=== PATIENT | female | born 1975 | race Caucasian/White ===

== ENCOUNTER 2018-02-24 13:18 | Emergency (ER) | payer BC ==
[~2018-02-24] VITALS: Ht 162.6 cm; Wt 68.6 kg
[~2018-02-24 13:18] MED LIST: AMLO5TAB4 PO; CIPR-260 PO; CLIN-80 PO; IBUP-1985 PO; NO HOME MEDS; PHEN-824 PO; PRED10TA PO; TRAM50TA2 PO
[2018-02-24] MEDS ORDERED: dexamethasone sod phosphate 10mg/ml inj IV STA (14:02)
[2018-02-24] MEDS ORDERED: ampicillin/sulbac 3gm/NS 100ml 100 ML IV ONE (14:05)
[2018-02-24] MEDS ORDERED: iohexol 300mg/ml 100ml inj. ONE (14:27)
[2018-02-24 14:30] LABS: BASOPHILS % (AUTO) 0 % (0-1); EOSINOPHILS # (AUTO) 0.1 X10'3 (0-0.9); EOSINOPHILS % (AUTO) 0.6 % (0-6); HEMATOCRIT 42.4 % (35.0-45.0); HEMOGLOBIN 15.1 g/dl (12.0-16.0); LYMPHOCYTES # (AUTO) 0.9 X10'3 (1.1-4.8); LYMPHOCYTES % (AUTO) 6.2 % (21-51); MEAN CORPUSCULAR HEMOGLOBIN 34.6 PG (27.0-31.0); MEAN CORPUSCULAR HGB CONC 35.6 % (33.0-36.5); MEAN CORPUSCULAR VOLUME 97.1 FL (78-98); MEAN PLATELET VOLUME 6.8 FL (7.4-10.4); MONOCYTES # (AUTO) 0.8 X10'3 (0-0.9); MONOCYTES % (AUTO) 5.3 % (2-12); NEUTROPHILS # (AUTO) 13.2 X10'3 (1.8-7.7); NEUTROPHILS % (AUTO) 87.9 % (42-75); PLATELET COUNT 320 X10'3 (140-440); RED BLOOD COUNT 4.36 X10'6 (4.20-5.60); RED CELL DISTRIBUTION WIDTH 12.7 % (11.5-14.5)
[2018-02-24 14:44] LABS: ALBUMIN 3.1 G/DL (3.4-5.0); ANION GAP 9 (8-16); BLOOD UREA NITROGEN 9 MG/DL (7-18); CALCIUM 8.9 MG/DL (8.5-10.1); CHLORIDE 102 MMOL/L (99-107); CREATININE 0.45 MG/DL (0.40-0.90); GLUCOSE 101 MG/DL (70-104); POTASSIUM 3.4 MMOL/L (3.5-5.1); SODIUM 138 MMOL/L (135-145); TOTAL CARBON DIOXIDE 27.2 MMOL/L (24-32); eGFR > 90 ML/MIN
[2018-02-24] MEDS: LIDOcaine Viscous 15ml cup MM PRN ×2 (16:59→17:41)
[2018-02-24] MEDS ORDERED: ondansetron 4mg rapidly disintigrating tab PO ONE (17:20)
[2018-02-24] MEDS ORDERED: MORPHINE 2MG in 2ml NS syringe IV ONE (17:20)
[2018-02-24] MEDS ORDERED: morphine 4 MG/ML inj SYRINge IV ONE ×2 (17:25→18:00)
[2018-02-24] MEDS ORDERED: LIDOcaine Viscous 15ml cup MM PRN (17:35)
[2018-02-24] MEDS ORDERED: LIDOcaine 1% 30ml preserv. free vial IJ STA (17:35)
[2018-02-24] MEDS ORDERED: HYDR-565 PO (17:39)
[2018-02-24] MEDS ORDERED: CLIN300C17 PO (17:39)
[2018-02-24 19:23] VITALS: BP 144/76
== END 2018-02-24 19:30 | disposition home or self-care (01) ==
LOC: ER 13:18
DX: J36 Peritonsillar abscess (principal); I10 Essential (primary) hypertension; F12.10 Cannabis abuse, uncomplicated; F15.10 Other stimulant abuse, uncomplicated; Z86.14 Personal history of Methicillin resistant Staphylococcus aureus infection; Z88.5 Allergy status to narcotic agent; Z88.8 Allergy status to other drugs, medicaments and biological substances; Z79.899 Other long term (current) drug therapy; Z90.49 Acquired absence of other specified parts of digestive tract
CPT/HCPCS: 36415; 42700; 80048; 85025; 87070; 87077; 87186; 96365; 96375; 96376; 99285; A6449; J0295; J1100; J2270; Q9967

== ENCOUNTER 2018-07-18 13:31 | Emergency (ER) | payer BC ==
[~2018-07-18] VITALS: Ht 160 cm; Wt 56.0 kg
[~2018-07-18 13:31] MED LIST changes: -CLIN-80 PO; +CLIN300C17 PO; +CLIN300C85 PO
[2018-07-18] MEDS ORDERED: dexamethasone sod phosphate 10mg/ml inj PO STA (14:51)
[2018-07-18] MEDS ORDERED: AMOX-422 PO (14:55)
[2018-07-18] MEDS ORDERED: ondansetron 4mg rapidly disintigrating tab PO ONE (14:55)
[2018-07-18 15:19] VITALS: BP 166/118
== END 2018-07-18 15:21 | disposition home or self-care (01) ==
LOC: ER 13:31
DX: J36 Peritonsillar abscess (principal); M54.2 Cervicalgia; I10 Essential (primary) hypertension; F12.90 Cannabis use, unspecified, uncomplicated; F15.90 Other stimulant use, unspecified, uncomplicated; Z86.14 Personal history of Methicillin resistant Staphylococcus aureus infection; Z90.49 Acquired absence of other specified parts of digestive tract; Z98.51 Tubal ligation status; Z88.8 Allergy status to other drugs, medicaments and biological substances; Z88.5 Allergy status to narcotic agent; Z79.899 Other long term (current) drug therapy
CPT/HCPCS: 99283; J1100

== ENCOUNTER 2018-08-12 13:09 | Emergency (ER) | payer BC ==
[~2018-08-12] VITALS: Ht 160 cm; Wt 65.5 kg
[2018-08-12 13:13] VITALS: BP 159/106
[2018-08-12] MEDS ORDERED: ondansetron/PF 4mg/2ml inj IV ONE (13:35)
[2018-08-12] MEDS ORDERED: normal saline 1000ML IV soln IVB ONE (13:35)
[2018-08-12 13:38] LABS: BASOPHILS % (AUTO) 0.3 % (0-1); EOSINOPHILS % (AUTO) 0.2 % (0-6); HEMOGLOBIN 15.4 g/dl (12.0-16.0); LYMPHOCYTES # (AUTO) 0.8 X10'3 (1.1-4.8); LYMPHOCYTES % (AUTO) 7.5 % (21-51); MEAN CORPUSCULAR HGB CONC 34.9 % (33.0-36.5); MEAN CORPUSCULAR VOLUME 97.4 FL (78-98); MEAN PLATELET VOLUME 6.4 FL (7.4-10.4); MONOCYTES # (AUTO) 0.7 X10'3 (0-0.9); MONOCYTES % (AUTO) 6.6 % (2-12); NEUTROPHILS # (AUTO) 8.6 X10'3 (1.8-7.7); NEUTROPHILS % (AUTO) 85.4 % (42-75); PLATELET COUNT 308 X10'3 (140-440); RED BLOOD COUNT 4.52 X10'6 (4.20-5.60); RED CELL DISTRIBUTION WIDTH 12.8 % (11.5-14.5); WHITE BLOOD COUNT 10.1 X10'3 (4.5-11.0)
[2018-08-12 13:40] LABS: URINE HCG NEGATIVE (NEG)
[2018-08-12 13:47] LABS: PROTHROMBIN TIME 10.1 SECONDS (9.0-12.0)
[2018-08-12 13:50] LABS: CLARITY,URINE CLEAR (Clear); COLOR,URINE YELLOW (Yellow); GLUCOSE, URINE NEGATIVE (Neg); KETONES,URINE TRACE mg/dl (Neg); LEUKOCYTE ESTERASE ,URINE TRACE (Neg); NITRITES, URINE NEGATIVE (Neg); OCCULT BLOOD,URINE NEGATIVE (Neg); PH,URINE 6.5 (4.8-8.0); PROTEIN,URINE TRACE mg/dl (Neg); UROBILINOGEN,URINE 0.2 E.U/dL (0.2-1.0)
[2018-08-12 13:52] LABS: UA COLLECTION TYPE CLN CATCH MIDSTREAM
[2018-08-12 13:53] LABS: ALANINE AMINOTRANSFERASE 75 U/L (12-78); ALBUMIN 3.3 G/DL (3.4-5.0); ALBUMIN/GLOBULIN RATIO 0.8 (1.1-1.5); ALKALINE PHOSPHATASE 136 IU/L (46-116); AMYLASE 36 U/L (25-115); ANION GAP 9 (8-16); ASPARTATE AMINO TRANSFERASE 42 U/L (10-37); BILIRUBIN,TOTAL 0.8 MG/DL (0.1-1.0); BLOOD UREA NITROGEN 6 MG/DL (7-18); BUN/CREATININE RATIO 8.8 (6.6-38.0); CALCIUM 9.1 MG/DL (8.5-10.1); CHLORIDE 96 MMOL/L (99-107); CREATININE 0.68 MG/DL (0.40-0.90); GLUCOSE 95 MG/DL (70-104); LIPASE 273 U/L (73-393); SODIUM 133 MMOL/L (135-145); TOTAL CARBON DIOXIDE 28.1 MMOL/L (24-32); TOTAL PROTEIN 7.5 G/DL (6.4-8.2); eGFR > 90 ML/MIN
[2018-08-12 13:55] LABS: POTASSIUM 2.9 MMOL/L (3.5-5.1)
[2018-08-12 14:00] LABS: BACTERIA,URINE 1+ /HPF (Neg); RBC,URINE NONE SEEN /HPF (0-2); SQUAMOUS EPITHELIAL CELL,UR MANY /LPF (FEW)
[2018-08-12] MEDS ORDERED: potassium Cl oral solution 20 MEQ/15 ML PO ONE (14:05)
[2018-08-12] MEDS ORDERED: SULF1TAB49 PO (14:06)
[2018-08-12] MEDS ORDERED: potassium Cl 20 mEq SR tablet PO ONE (14:20)
== END 2018-08-12 14:51 | disposition home or self-care (01) ==
LOC: ER 13:09
DX: N39.0 Urinary tract infection, site not specified (principal); E86.0 Dehydration; I10 Essential (primary) hypertension; Z86.14 Personal history of Methicillin resistant Staphylococcus aureus infection; F12.90 Cannabis use, unspecified, uncomplicated; F15.90 Other stimulant use, unspecified, uncomplicated; Z90.49 Acquired absence of other specified parts of digestive tract; Z88.5 Allergy status to narcotic agent; Z88.8 Allergy status to other drugs, medicaments and biological substances; Z79.2 Long term (current) use of antibiotics; Z79.899 Other long term (current) drug therapy
CPT/HCPCS: 36415; 80053; 81001; 81025; 82150; 83690; 85025; 85610; 96361; 96374; 99284; J2405; J7030

== ENCOUNTER 2020-04-16 13:40 | Emergency (ER) | payer BC, MEDICAID ==
[~2020-04-16] VITALS: Ht 157.5 cm; Wt 69.7 kg
[~2020-04-16 13:40] MED LIST changes: +CLIN-97 PO; -CLIN300C85 PO
[2020-04-16] MEDS ORDERED: clindamycin phosphate 150mg/ml inj. IM ONE (14:25)
[2020-04-16] MEDS ORDERED: predniSONE 20 mg tablet PO ONE (14:25)
[2020-04-16] MEDS ORDERED: CLIN-97 PO (14:26)
[2020-04-16] MEDS ORDERED: PRED20TA PO (14:26)
[2020-04-16 14:56] VITALS: BP 153/69
[2020-04-17] MEDS ORDERED: IBUP-2417 PO (18:16)
[2020-04-17] MEDS ORDERED: NO HOME MEDS (19:31)
== END 2020-04-16 14:57 | disposition home or self-care (01) ==
LOC: ER 13:41
DX: J02.9 Acute pharyngitis, unspecified (principal); I10 Essential (primary) hypertension; F41.9 Anxiety disorder, unspecified; F32.9 Major depressive disorder, single episode, unspecified; F17.200 Nicotine dependence, unspecified, uncomplicated; F12.90 Cannabis use, unspecified, uncomplicated; F15.90 Other stimulant use, unspecified, uncomplicated; Z88.8 Allergy status to other drugs, medicaments and biological substances; Z72.89 Other problems related to lifestyle; Z86.14 Personal history of Methicillin resistant Staphylococcus aureus infection; Z79.899 Other long term (current) drug therapy
CPT/HCPCS: 96372; 99283; J3490; J7512

== ENCOUNTER 2020-04-17 11:10 | Inpatient (IN) | payer MEDICAID ==
[~2020-04-17] VITALS: Ht 157.5 cm; Wt 68.5 kg
[2020-04-17] MEDS: K, MAG and/or Phos replacement - Verify level? MC SCH
[~2020-04-17 11:10] MED LIST changes: +PRED20TA PO; +etomidate 2mg/ml inj. ONE; +rocuronium 10mg/ml inj IV ONE
[2020-04-17] MEDS ORDERED: dexamethasone sod phosphate 10mg/ml inj IV STA (11:59)
[2020-04-17] MEDS ORDERED: normal saline 1000ML IV soln IVB ONE ×3 (12:00→17:25)
[2020-04-17] MEDS ORDERED: iohexol 300mg/ml 100ml inj. ONE (12:12)
--- NOTE | 2020-04-17 12:21 | NUR ---
To CT, will start IVF bolus and give decadron upon return.
--- NOTE | 2020-04-17 12:35 | NUR ---
Return from CT.
[2020-04-17] MEDS ORDERED: ketorolac trometh. 30mg/ml inj. IV ONE (12:45)
[2020-04-17] MEDS ORDERED: ketamine 50 mg/ml 10ml vial IV ONE (13:05)
--- NOTE | 2020-04-17 14:06 | NUR ---
Consent for I&D of persistent abscess with moderate sedation completed by the providers and patient.
[2020-04-17] MEDS ORDERED: LIDOcaine 1% W/epiNEPHrine 1:200,000 10ml vial IJ ONE (14:15)
[2020-04-17] MEDS ORDERED: ampicillin/sulbac 3gm/NS 100ml 100 ML IV STA (14:17)
[2020-04-17] MEDS ORDERED: LORazepam 2 mg/ml vial IV ONE ×4 (15:15→20:35)
--- NOTE | 2020-04-17 15:44 | NUR ---
Pt's skin is cool, clammy, and diaphoretic. Pt reports feeling hot, temperature taken and is 98.6 oral.
--- NOTE | 2020-04-17 16:14 | NUR ---
Difficulty obtaining accurate pulse ox readings due to how cool and clammy the patient is at this time. Pt's nail solomon islander removed, fingers and both hands checked, and on the right ear. Pulse ox is reading in the 60's then when repositioned will get a reading in the high 80's to low 90's. This has been happening since the procedure was in progress. Pt placed on NRB mask at 15l/min. The IVF bolus that was hung pre-procedure started wide open at this time per HEMA Jain
[2020-04-17] MEDS ORDERED: glycopyrrolate 0.2mg/ml inj IV ONE (16:25)
[2020-04-17] MEDS ORDERED: vancomycin inj 1,000 MG in normal saline 250ml IV soln 250 ML IV STA (16:26)
[2020-04-17] MEDS ORDERED: ipratropium/albuterol 3ml nebule NEB ONE (16:30)
--- NOTE | 2020-04-17 16:54 | NUR ---
RT is here to complete neb treatment. Pt's pulse ox is ranging mid 80's with NRB at this time. HR 125-130 pre-treatment
[2020-04-17] MEDS ORDERED: cloNIDine 0.1 mg tablet PO ONE ×2 (16:55→18:45)
[2020-04-17 17:01] LABS: EOSINOPHILS % (AUTO) 0 % (0-6); MONOCYTES # (AUTO) 0.4 X10'3 (0-0.9); RED BLOOD COUNT 4.84 X10'6 (4.20-5.60)
[2020-04-17 17:03] LABS: BASOPHILS % (AUTO) 0.2 % (0-1); HEMATOCRIT 47.4 % (35.0-45.0); HEMOGLOBIN 16.5 g/dl (12.0-16.0); LYMPHOCYTES # (AUTO) 0.5 X10'3 (1.1-4.8); LYMPHOCYTES % (AUTO) 1.9 % (21-51); MEAN CORPUSCULAR HGB CONC 34.7 g/dL (33.0-36.5); MONOCYTES % (AUTO) 1.3 % (2-12); NEUTROPHILS # (AUTO) 26.7 X10'3 (1.8-7.7); NEUTROPHILS % (AUTO) 96.6 % (42-75); PLATELET COUNT 307 X10'3 (140-440); RED CELL DISTRIBUTION WIDTH 12.7 % (11.5-14.5)
[2020-04-17 17:06] LABS: WHITE BLOOD COUNT 27.7 X10'3 (4.5-11.0)
--- NOTE | 2020-04-17 17:07 | NUR ---
Pt assisted to the bedside commode to void. Pt voided approximately 350 yellow urine.
[2020-04-17 17:19] LABS: CLARITY,URINE SLIGHTLY CLOUDY (Clear); COLOR,URINE YELLOW (Yellow); GLUCOSE, URINE 100 mg/dl (Neg); KETONES,URINE 15 mg/dl (Neg); LEUKOCYTE ESTERASE ,URINE NEGATIVE (Neg); NITRITES, URINE NEGATIVE (Neg); OCCULT BLOOD,URINE TRACE-INTACT (Neg); PH,URINE 7.5 (4.8-8.0); PROTEIN,URINE 100 mg/dl (Neg); URINE HCG NEGATIVE (NEG); UROBILINOGEN,URINE 0.2 E.U/dL (0.2-1.0)
[2020-04-17 17:20] LABS: UA COLLECTION TYPE CLN CATCH MIDSTREAM
[2020-04-17 17:25] LABS: BACTERIA,URINE FEW /HPF (Neg); MUCUS STRANDS NONE SEEN /LPF (Neg); RBC,URINE 0-2 /HPF (0-2); SQUAMOUS EPITHELIAL CELL,UR MANY /LPF (FEW); WBC,URINE 0-4 /HPF (0-4)
--- NOTE | 2020-04-17 17:26 | NUR ---
Pt had approximately 500ml IVF NS post procedure and 1l bolus prior to the procedure. Order for additional 1liter NSS bolus received.
[2020-04-17 17:27] LABS: ALANINE AMINOTRANSFERASE 49 U/L (12-78); ALBUMIN 2.8 G/DL (3.4-5.0); ALBUMIN/GLOBULIN RATIO 0.6 (1.1-1.5); ALKALINE PHOSPHATASE 135 IU/L (46-116); ANION GAP 15 (8-16); ASPARTATE AMINO TRANSFERASE 57 U/L (10-37); BLOOD UREA NITROGEN 7 MG/DL (7-18); BUN/CREATININE RATIO 8.2 (6.6-38.0); CALCIUM 7.8 MG/DL (8.5-10.1); CHLORIDE 102 MMOL/L (99-107); CREATININE 0.85 MG/DL (0.40-0.90); GLUCOSE 256 MG/DL (70-104); MAGNESIUM 1.2 MG/DL (1.5-2.4); SODIUM 139 MMOL/L (135-145); TOTAL CARBON DIOXIDE 21.6 MMOL/L (24-32); TOTAL PROTEIN 7.2 G/DL (6.4-8.2); TROPONIN I 0.16 NG/ML (0.0-0.05); eGFR 73 ML/MIN
[2020-04-17 17:30] LABS: POTASSIUM 2.9 MMOL/L (3.5-5.1)
[2020-04-17 17:31] LABS: URINE AMPHETAMINE SCREEN POSITIVE (Neg); URINE BARBITUATE SCREEN NEGATIVE (Neg); URINE BENZODIAZEPINES SCREEN NEGATIVE (Neg); URINE CANNABINOID SCREEN POSITIVE (Neg); URINE COCAINE SCREEN NEGATIVE (Neg); URINE METHADONE SCREEN NEGATIVE (Neg); URINE OPIATE SCREEN NEGATIVE (Neg); URINE PHENCYCLIDINE SCREEN NEGATIVE (Neg)
[2020-04-17] MEDS ORDERED: potassium 10mEq/100ml NS w/LIDOcaine (10mg/bag) IV SCH (17:35)
[2020-04-17] MEDS ORDERED: magnesium 2GM in 50ml NS 50 ML IV ONE (17:35)
[2020-04-17] MEDS ORDERED: potassium Cl 20 mEq SR tablet PO ONE (17:35)
[2020-04-17] MEDS ORDERED: potassium Cl 10 mEq/100mL bag IV SCH (17:38)
[2020-04-17 17:48] LABS: TOTAL CELLS COUNTED 100
[2020-04-17 17:49] LABS: PLATELET ESTIMATE NORMAL; TOXIC GRANULATION 1+
--- NOTE | 2020-04-17 17:59 | NUR ---
bipap placed by RT for increased work of breathing
[2020-04-17] MEDS ORDERED: IBUP-2417 PO (18:16)
[2020-04-17] MEDS ORDERED: potassium CL 10mEq/100ml bag 100 ML IV PRN ×2 (18:55)
[2020-04-17] MEDS ORDERED: magnesium hydroxide 30ml (MOM) UD suspension PO PRN (18:55)
[2020-04-17] MEDS ORDERED: magnesium Cl slow-release 64mg tablet PO PRN (18:55)
[2020-04-17] MEDS ORDERED: ondansetron/PF 4mg/2ml inj IV PRN (18:55)
[2020-04-17] MEDS ORDERED: potassium Cl 20 mEq SR tablet PO PRN ×2 (18:55)
[2020-04-17] MEDS ORDERED: acetaminophen 325mg tablet PO PRN (18:55)
[2020-04-17] MEDS ORDERED: magnesium 2GM in 50ml NS 50 ML IV PRN (18:55)
[2020-04-17] MEDS ORDERED: morphine 4 MG/ML inj SYRINge IV PRN (18:55)
[2020-04-17] MEDS ORDERED: magnesium 4gm in 100ml NS 100 ML IV PRN (18:55)
[2020-04-17] MEDS ORDERED: nitroGLYCERIN 0.2mg/hour patch TD ONE (19:10)
[2020-04-17] MEDS ORDERED: furosemide 10 MG/1 ML 10ml inj IV ONE ×4 (19:15→20:35)
--- NOTE | 2020-04-17 19:18 | NUR ---
repeat lactic acid and troponin is being collected at this time.
[2020-04-17] MEDS ORDERED: NO HOME MEDS (19:31)
--- NOTE | 2020-04-17 19:55 | NUR ---
Recieved report from Kathy TRUONG in ER, patient to be admited to room 2013, will assume care upon patient arrival to unit.
[2020-04-17] MEDS ORDERED: ampicillin inj 2 GM in normal saline 100ml IV soln 100 ML IV SCH (20:00)
[2020-04-17] MEDS ORDERED: metroNIDAZOLE-Flagyl 500mg/NS 100 ML IV SCH (20:00)
--- NOTE | 2020-04-17 20:15 | NUR ---
Telephone report to CICU Nurse DIONNE Christina. Respiratory Therapist spoke with the provider about the patient's respiratory effort and decreased SpO2 and that they feel she is unstable for transport to the unit at this time. Continuing to monitor and care for the patient in the ED.
[2020-04-17 20:21] LABS: ABG BASE EXCESS -2.8 mmol/L (-2.0-3.0); ABG OXYGEN SATURATION 91.6 % (95-98); ABG PCO2 (T) 34.5 mmHg (35.0-45.0); ABG PH (T) 7.402 (7.350-7.450); ABG PO2 (T) 67.1 mmHg (83-108); ALLEN'S TEST POSITIVE; FCOHb 0.3 % (0.5-1.5); FMetHb 0.2 % (0.3-1.12); FO2Hb 91.1 % (94-100); TOTAL HEMOGLOBIN 18.4 G/dl (12.0-16.0)
[2020-04-17] MEDS: normal saline 1000ml 1,000 ML IV SCH (20:23)
[2020-04-17] MEDS ORDERED: nitroGLYCERIN-Tridil 50MG/D5W 250 ML IV ONE (20:40)
[2020-04-17] MEDS ORDERED: albuterol 2.5 MG/3 ML nebule NEB PRN (21:05)
--- NOTE | 2020-04-17 21:05 | NUR ---
md administered nitroglycerin 2500 mcg IV. MD will intubate. Pt moved to ER 3
--- NOTE | 2020-04-17 21:05 | NUR ---
Report to Purnima Kimbrough RN for break relief.
--- NOTE | 2020-04-17 21:14 | NUR ---
2113 INTUBATION WITH HIRSCH 3 2117 10 MG ETOMIDATE AND50 ALEK PT INTUBATED HR 111, O2 97,126/89
--- NOTE | 2020-04-17 21:15 | NUR ---
pt intubated [address]. OG tube place on low intermittent suction
[2020-04-17] MEDS ORDERED: iohexol 350MG/ML 100ml bottle IV ONE (21:19)
--- NOTE | 2020-04-17 21:20 | NUR ---
Upon return from Break, pt had been moved from room 14 to room 3 and was intubated using RSI medications. Purnima Kimbrough, RN is managing the care of the patient as the primary nurse at this time.
[2020-04-17] MEDS ORDERED: rocuronium 10mg/ml inj IV ONE (21:30)
[2020-04-17] MEDS ORDERED: etomidate 2mg/ml inj. IV ONE (21:30)
[2020-04-17] MEDS ORDERED: propofol 1000mg/100ml bottle 100 ML IV PRN (21:37)
[2020-04-17] MEDS ORDERED: methylPREDNISolone sod succ 125mg/2ml vial IV ONE (21:40)
[2020-04-17] MEDS ORDERED: pantoprazole 40 MG vial IV ONE (22:00)
[2020-04-17] MEDS ORDERED: VECuronium br 10mg inj. IV ONE (22:00)
[2020-04-17 22:05] LABS: ABG BASE EXCESS -6.8 mmol/L (-2.0-3.0); ABG HCO3 19.7 mmol/L (22.0-26.0); ABG OXYGEN SATURATION 86.4 % (95-98); ABG PCO2 (T) 44.5 mmHg (35.0-45.0); ABG PH (T) 7.268 (7.350-7.450); ABG PO2 (T) 62.9 mmHg (83-108); FCOHb 0.3 % (0.5-1.5); FO2Hb 86.1 % (94-100); PATIENT TEMPERATURE 37.8; PEEP 18 cm H2O; RESPIRATORY RATE 28 b/min; TIDAL VOLUME 350 mL; TOTAL HEMOGLOBIN 19.5 G/dl (12.0-16.0)
[2020-04-17] MEDS ORDERED: NORepinephrine 8mg/ 250ml NS 250 ML IV PRN (22:09)
[2020-04-17 22:15] LABS: EOSINOPHILS % (AUTO) 0 % (0-6); LYMPHOCYTES # (AUTO) 0.8 X10'3 (1.1-4.8); LYMPHOCYTES % (AUTO) 1.8 % (21-51); MONOCYTES # (AUTO) 1.2 X10'3 (0-0.9); PLATELET COUNT 369 X10'3 (140-440)
[2020-04-17 22:17] LABS: BASOPHILS % (AUTO) 0.1 % (0-1); HEMATOCRIT 52.1 % (35.0-45.0); HEMOGLOBIN 17.9 g/dl (12.0-16.0); MEAN CORPUSCULAR HEMOGLOBIN 34.1 PG (27.0-31.0); MEAN CORPUSCULAR HGB CONC 34.4 g/dL (33.0-36.5); MEAN CORPUSCULAR VOLUME 99.2 FL (78-98); MEAN PLATELET VOLUME 7.4 FL (7.4-10.4); MONOCYTES % (AUTO) 2.7 % (2-12); NEUTROPHILS # (AUTO) 40.5 X10'3 (1.8-7.7); NEUTROPHILS % (AUTO) 95.4 % (42-75); RED BLOOD COUNT 5.26 X10'6 (4.20-5.60); RED CELL DISTRIBUTION WIDTH 12.9 % (11.5-14.5)
[2020-04-17 22:25] LABS: WHITE BLOOD COUNT 42.5 X10'3 (4.5-11.0)
[2020-04-17 22:29] LABS: ALANINE AMINOTRANSFERASE 45 U/L (12-78); ALBUMIN 2.6 G/DL (3.4-5.0); ALBUMIN/GLOBULIN RATIO 0.6 (1.1-1.5); ALKALINE PHOSPHATASE 139 IU/L (46-116); ANION GAP 11 (8-16); ASPARTATE AMINO TRANSFERASE 62 U/L (10-37); BILIRUBIN,TOTAL 1.4 MG/DL (0.1-1.0); BLOOD UREA NITROGEN 9 MG/DL (7-18); BUN/CREATININE RATIO 8.1 (6.6-38.0); CALCIUM 7.9 MG/DL (8.5-10.1); CHLORIDE 104 MMOL/L (99-107); CREATININE 1.11 MG/DL (0.40-0.90); GLUCOSE 233 MG/DL (70-104); PARTIAL THROMBOPLASTIN TIME 22 SECONDS (22-32); SODIUM 140 MMOL/L (135-145); TOTAL CARBON DIOXIDE 24.9 MMOL/L (24-32); TOTAL PROTEIN 7.2 G/DL (6.4-8.2); eGFR 53 ML/MIN
[2020-04-17 22:31] LABS: POTASSIUM 3.9 MMOL/L (3.5-5.1)
--- NOTE | 2020-04-17 22:57 | NUR ---
NEGATIVE COVID SWAB. PRIMARY DIONNE SEN AND DR. CHILDS NOTIFIED
[2020-04-17 23:09] LABS: PLATELET ESTIMATE NORMAL; TOTAL CELLS COUNTED 100; TOXIC GRANULATION 1+
[2020-04-17] MEDS: ipratropium/albuterol 3ml nebule NEB SCH (23:09)
--- NOTE | 2020-04-17 23:19 | NUR ---
Received report from Purnima TRUONG. Patient to be admited to room 2010, will assume patient care upon patient arrival to unit.
[2020-04-17 23:45] VITALS: BP 103/74
[2020-04-17] MEDS ORDERED: acetaminophen 1,000mg/100ml IV 100 ML IV ONE (23:45)
[2020-04-18] VITALS (24 sets, daily range): BP systolic 83–121; BP diastolic 52–84
[2020-04-18] MEDS: FENTANYL-0.9 % NACL/PF 100 ML IV PRN ×6 (00:03→22:33)
[2020-04-18] MEDS: midazolam 100mg in NS 100ml 100 ML IV PRN ×5 (00:04→21:46)
[2020-04-18 01:41] LABS: ABG HCO3 18.7 mmol/L (22.0-26.0); ABG OXYGEN SATURATION 90.4 % (95-98); ABG PCO2 (T) 37.4 mmHg (35.0-45.0); ABG PH (T) 7.324 (7.350-7.450); ABG PO2 (T) 69.7 mmHg (83-108); FCOHb 0.3 % (0.5-1.5); FMetHb 0.3 % (0.3-1.12); FO2Hb 89.9 % (94-100); PATIENT TEMPERATURE 38.4; PEEP 18 cm H2O
[2020-04-18 01:41] LABS: OXYGEN SATURATION (MIXED VEN) 55.8 % (60-80); PO2 MIXED VENOUS (TEMP COR) 37.5 mmHg (35-46)
[2020-04-18] MEDS: clindamycin 600mg/D5W 50ml 50 ML IV SCH ×2 (01:44→08:10)
[2020-04-18] MEDS: methylPREDNISolone sod succ 125mg/2ml vial IV SCH ×4 (01:45→20:32)
[2020-04-18] MEDS: piperacillin/tazo 3.375gm/50ml 50 ML IV SCH ×2 (01:53→10:09)
[2020-04-18 01:59] LABS: EOSINOPHILS % (AUTO) 0 % (0-6); HEMOGLOBIN 15.1 g/dl (12.0-16.0); LYMPHOCYTES # (AUTO) 0.3 X10'3 (1.1-4.8); LYMPHOCYTES % (AUTO) 0.8 % (21-51); MEAN CORPUSCULAR VOLUME 98.6 FL (78-98)
[2020-04-18 02:03] LABS: BASOPHILS # (AUTO) 0.2 X10'3 (0-0.2); BASOPHILS % (AUTO) 0.5 % (0-1); HEMATOCRIT 44.4 % (35.0-45.0); MEAN CORPUSCULAR HEMOGLOBIN 33.5 PG (27.0-31.0); MEAN PLATELET VOLUME 7.5 FL (7.4-10.4); MONOCYTES # (AUTO) 1.3 X10'3 (0-0.9); MONOCYTES % (AUTO) 3.1 % (2-12); NEUTROPHILS # (AUTO) 38.8 X10'3 (1.8-7.7); NEUTROPHILS % (AUTO) 95.6 % (42-75); PLATELET COUNT 332 X10'3 (140-440); RED CELL DISTRIBUTION WIDTH 12.8 % (11.5-14.5)
[2020-04-18 02:16] LABS: WHITE BLOOD COUNT 40.6 X10'3 (4.5-11.0)
[2020-04-18 02:20] LABS: ALANINE AMINOTRANSFERASE 35 U/L (12-78); ALBUMIN 2.2 G/DL (3.4-5.0); ALBUMIN/GLOBULIN RATIO 0.6 (1.1-1.5); ALKALINE PHOSPHATASE 102 IU/L (46-116); ANION GAP 10 (8-16); ASPARTATE AMINO TRANSFERASE 53 U/L (10-37); BILIRUBIN,TOTAL 0.9 MG/DL (0.1-1.0); BLOOD UREA NITROGEN 12 MG/DL (7-18); BUN/CREATININE RATIO 10.7 (6.6-38.0); CHLORIDE 109 MMOL/L (99-107); CREATININE 1.12 MG/DL (0.40-0.90); GLUCOSE 192 MG/DL (70-104); MAGNESIUM 1.7 MG/DL (1.5-2.4); PHOSPHORUS 2.4 MG/DL (2.3-4.5); SODIUM 141 MMOL/L (135-145); TOTAL CARBON DIOXIDE 22.3 MMOL/L (24-32); TOTAL PROTEIN 5.9 G/DL (6.4-8.2); eGFR 53 ML/MIN
[2020-04-18] MEDS: ipratropium/albuterol 3ml nebule NEB SCH ×6 (02:48→23:11)
[2020-04-18] MEDS ORDERED: VECuronium br 10mg inj. IV ONE (03:05)
[2020-04-18] MEDS ORDERED: furosemide 40mg/4ml inj IV ONE (03:20)
[2020-04-18] MEDS: CISatracurium besylate inj. 100 MG in normal saline 100ml IV soln 90 ML IV PRN (04:12)
--- NOTE | 2020-04-18 04:37 | NUR ---
0200 decreased PEEP to 15 from 18 per Nicko Bernabe orders 0240 attempted to prone patient due to decrease spo2 of 82%, patient desaturated to 66% spo2, suctioned pt, boluses with sedation and increase, spo2 without improvment, patient returned to supine. Nicko Bernabe informed. chest xray obtained. versed and fentanyl drip increase per Nicko Bernabe [employer] 0313 vecuronium administered. Nimbex drip ordered. 0318 PEEP increased to 18 0334 PEEP 17 0341 PEEP 16 0342 PEEP 15
[2020-04-18] MEDS: normal saline 1000ml 1,000 ML IV SCH ×2 (04:54→16:16)
[2020-04-18] MEDS ORDERED: vancomycin/NS 1 GM ADD-VANTAGE 250 ML IV SCH (05:00)
--- NOTE | 2020-04-18 05:22 | NUR ---
moiz sent to safe.
--- NOTE | 2020-04-18 06:15 | NUR ---
Student documentation: I have reviewed and agree with all interventions, assessments performed and documented by Angélica MARTINEZ student. Student Medication Administration: For this medication-pass time frame, all medication were reviewed, dispensed, administered and documented per hospital policy by Angélica MARTINEZ student.
--- NOTE | 2020-04-18 06:15 | NUR ---
Patient in room CICU 2011. Jf RN & I have received report from Carri TRUONG and had the opportunity to ask questions and assume patient care.
--- NOTE | 2020-04-18 06:20 | NUR ---
Problems reprioritized. Patient report given, questions answered & plan of care reviewed with Jf TRUONG.
[2020-04-18] MEDS ORDERED: pantoprazole 40mg Tablet.DR PO SCH (07:30)
[2020-04-18] MEDS ORDERED: enoxaparin 40mg/0.4ml syringe SUBCUT SCH (08:00)
[2020-04-18] MEDS: K, MAG and/or Phos replacement - Verify level? MC SCH (08:00)
[2020-04-18] MEDS ORDERED: clindamycin 600mg/D5W 50ml 50 ML IV SCH (08:00)
[2020-04-18] MEDS ORDERED: MESSAGE TO NURSING PO ONE (08:10)
[2020-04-18] MEDS: furosemide 40mg/4ml inj IV SCH ×2 (08:12→20:31)
[2020-04-18] MEDS: pantoprazole 40 MG vial IV SCH (08:14)
[2020-04-18] MEDS: heparin, porcine 5000 units/ml vial SQ SCH ×2 (08:19→20:29)
--- NOTE | 2020-04-18 08:50 | NUR ---
Jf TRUONG and I gave report to Nikole TRUONG.
--- NOTE | 2020-04-18 11:47 | NUR ---
Patient is intubated. Presented to ED with c/o sore throat x4 days with swelling to neck and face, difficulty swallowing water this morning per ED note. Had CT revealing peritonsillar abscess, had aspiration of abscess, followed by pt needing Bipap, then later intubated. Is currently with no tube feedings. If to have nutrition support if prolonged intubation recommendations are below. Recommend: 1. IF tube feeding recommend vital AF at 70 ml/hr, would provide 1680 ml, 2016 cals, 126 g protein, and 1362 ml water. 2. IF tube feeding and if receiving water flush recommend water flush 115 ml q 4 hours 3. IF tube feeding, daily weights and prealbumin q saturday and Addendum: 04/18/20 at [address] Amended: Links added.
[2020-04-18] MEDS: levoFLOXACIN-Levaquin 500mg/D5 100 ML IV SCH (13:17)
[2020-04-18] MEDS ORDERED: dextrose 50%-water 50ml dispensing syringe IV PRN ×2 (15:20)
[2020-04-18] MEDS ORDERED: MESSAGE TO PHARMACY PO ONE (15:20)
[2020-04-18] MEDS ORDERED: dextrose ORAL solution 15 GM/59 ML bottle PO PRN ×2 (15:20)
[2020-04-18] MEDS ORDERED: insulin Lispro (HumaLOG) vial - multi-dose SQ SCH (15:20)
[2020-04-18] MEDS ORDERED: glucagon, human recombinant 1mg kit SUBCUT PRN (15:20)
[2020-04-18] MEDS: insulin regular, human U-100 3ml vial - multi-dose SQ SCH ×2 (16:15→20:44)
[2020-04-18] MEDS ORDERED: NORepinephrine 8mg/ 250ml NS 250 ML IV PRN (16:18)
[2020-04-18 19:41] LABS: ABG BASE EXCESS -0.8 mmol/L (-2.0-3.0); ABG HCO3 24.4 mmol/L (22.0-26.0); ABG OXYGEN SATURATION 94.7 % (95-98); ABG PCO2 (T) 42.6 mmHg (35.0-45.0); ABG PH (T) 7.377 (7.350-7.450); ABG PO2 (T) 77.8 mmHg (83-108); FCOHb 0.3 % (0.5-1.5); FMetHb 0.2 % (0.3-1.12); FO2Hb 94.2 % (94-100); PATIENT TEMPERATURE 37.2; PEEP 15 cm H2O; RESPIRATORY RATE 28 b/min; TIDAL VOLUME 350 mL; TOTAL HEMOGLOBIN 12.7 G/dl (12.0-16.0)
[2020-04-18] MEDS: lactobacillus rhamnosus 10,000 MMU CELLS/CAPSULE PO SCH (20:30)
[2020-04-18] MEDS: insulin glargine (Lantus) pen - multi-dose SQ SCH (20:45)
[2020-04-18] MEDS ORDERED: dexmedetomidin/NS 400mcg/100ml 100 ML IV SCH (22:30)
[2020-04-18] MEDS: dexmedetomidine inj. 400 MCG in dextrose 5%-water 96 ML IV SCH (22:50)
--- NOTE | 2020-04-18 22:57 | NUR ---
Mother called, updated on patient condition.
[2020-04-19] VITALS (24 sets, daily range): BP systolic 87–125; BP diastolic 53–79
[2020-04-19] MEDS: FENTANYL-0.9 % NACL/PF 100 ML IV PRN ×8 (01:20→23:02)
[2020-04-19] MEDS: midazolam 100mg in NS 100ml 100 ML IV PRN ×5 (02:11→22:33)
[2020-04-19] MEDS: methylPREDNISolone sod succ 125mg/2ml vial IV SCH ×4 (02:15→20:05)
[2020-04-19] MEDS: insulin regular, human U-100 3ml vial - multi-dose SQ SCH ×3 (02:26→20:28)
[2020-04-19] MEDS: mineral oil/petrolatum ophthal oint EACHEYE SCH ×4 (02:27→20:24)
[2020-04-19 03:02] LABS: BASOPHILS % (AUTO) 0.1 % (0-1); EOSINOPHILS % (AUTO) 0 % (0-6); HEMATOCRIT 32.2 % (35.0-45.0); HEMOGLOBIN 11.2 g/dl (12.0-16.0); LYMPHOCYTES # (AUTO) 0.4 X10'3 (1.1-4.8); LYMPHOCYTES % (AUTO) 1.6 % (21-51); MEAN CORPUSCULAR HEMOGLOBIN 33.9 PG (27.0-31.0); MEAN CORPUSCULAR HGB CONC 34.7 g/dL (33.0-36.5); MEAN CORPUSCULAR VOLUME 97.8 FL (78-98); MEAN PLATELET VOLUME 7.1 FL (7.4-10.4); MONOCYTES # (AUTO) 0.8 X10'3 (0-0.9); MONOCYTES % (AUTO) 3.6 % (2-12); NEUTROPHILS # (AUTO) 21.9 X10'3 (1.8-7.7); NEUTROPHILS % (AUTO) 94.7 % (42-75); PLATELET COUNT 226 X10'3 (140-440); RED BLOOD COUNT 3.29 X10'6 (4.20-5.60); RED CELL DISTRIBUTION WIDTH 12.8 % (11.5-14.5); WHITE BLOOD COUNT 23.1 X10'3 (4.5-11.0)
[2020-04-19 03:15] LABS: ALANINE AMINOTRANSFERASE 27 U/L (12-78); ALBUMIN 2.2 G/DL (3.4-5.0); ALBUMIN/GLOBULIN RATIO 0.6 (1.1-1.5); ALKALINE PHOSPHATASE 59 IU/L (46-116); ANION GAP 10 (8-16); ASPARTATE AMINO TRANSFERASE 32 U/L (10-37); BILIRUBIN,TOTAL 0.3 MG/DL (0.1-1.0); BLOOD UREA NITROGEN 20 MG/DL (7-18); BUN/CREATININE RATIO 20.8 (6.6-38.0); CALCIUM 7.7 MG/DL (8.5-10.1); CHLORIDE 110 MMOL/L (99-107); CREATININE 0.96 MG/DL (0.40-0.90); GLUCOSE 146 MG/DL (70-104); MAGNESIUM 1.6 MG/DL (1.5-2.4); PHOSPHORUS 1.5 MG/DL (2.3-4.5); POTASSIUM 3.4 MMOL/L (3.5-5.1); SODIUM 147 MMOL/L (135-145); TOTAL CARBON DIOXIDE 27.4 MMOL/L (24-32); TOTAL PROTEIN 5.6 G/DL (6.4-8.2); VANCOMYCIN,TROUGH 3.7 UG/ML (6.0-14.0); eGFR 63 ML/MIN
[2020-04-19] MEDS: ipratropium/albuterol 3ml nebule NEB SCH ×6 (03:32→23:01)
[2020-04-19] MEDS ORDERED: VANCOMYCIN LEVEL IV ONE (04:30)
--- NOTE | 2020-04-19 04:30 | NUR ---
Ling Bernabe BUILDER BEAM of patients prolonged QTC of 0.62. Upon assumption of care at 1825 QTC was 0.58.
[2020-04-19] MEDS ORDERED: Neutra Phos packet OGT ONE (04:40)
[2020-04-19] MEDS: CISatracurium besylate inj. 100 MG in normal saline 100ml IV soln 90 ML IV PRN ×2 (04:41→20:24)
[2020-04-19] MEDS: potassium Cl 20mEq/100mL bag 100 ML IV PRN ×6 (04:46→16:44)
[2020-04-19 04:56] LABS: ABG BASE EXCESS 0.5 mmol/L (-2.0-3.0); ABG HCO3 24.3 mmol/L (22.0-26.0); ABG OXYGEN SATURATION 97.5 % (95-98); ABG PCO2 (T) 36.6 mmHg (35.0-45.0); ABG PH (T) 7.442 (7.350-7.450); ABG PO2 (T) 104.9 mmHg (83-108); FCOHb 0.2 % (0.5-1.5); FMetHb 0.1 % (0.3-1.12); FO2Hb 97.2 % (94-100); PATIENT TEMPERATURE 37.1; PEEP 15 cm H2O; RESPIRATORY RATE 28 b/min; TIDAL VOLUME 350 mL; TOTAL HEMOGLOBIN 11.8 G/dl (12.0-16.0)
[2020-04-19] MEDS ORDERED: magnesium 2GM in 50ml NS 50 ML IV ONE (05:25)
--- NOTE | 2020-04-19 06:20 | NUR ---
Problems reprioritized. Patient report given, questions answered & plan of care reviewed with Jf TRUONG.
[2020-04-19] MEDS: lactobacillus rhamnosus 10,000 MMU CELLS/CAPSULE PO SCH ×2 (07:40→20:05)
[2020-04-19] MEDS: furosemide 40mg/4ml inj IV SCH ×2 (07:40→20:04)
[2020-04-19] MEDS: pantoprazole 40 MG vial IV SCH (07:40)
[2020-04-19] MEDS: heparin, porcine 5000 units/ml vial SQ SCH ×2 (07:41→20:05)
[2020-04-19] MEDS: K, MAG and/or Phos replacement - Verify level? MC SCH (08:22)
[2020-04-19] MEDS: levoFLOXACIN-Levaquin 500mg/D5 100 ML IV SCH (10:57)
--- NOTE | 2020-04-19 12:16 | NUR ---
TF Consult: OGTF to start today per patient scheduling manager. Pt on rotoprone bed w/ ARDS, peritonsillar abscess aspiration, and meth abuse hx. MAP 73 this AM. No BM yet this admit. Will monitor for EN tolerance. Recommend: 1. OGTF per MD using vital AF at 70 ml/hr, would provide 1680 ml, 2016 cals, 126 g protein, and 1362 ml water. 2. additional water flush 200ml Q4 3. daily weights; prealbumin q saturday/ 4. routine bowel care; consider opioid antagonist on opiates 5. monitor for TF tolerance Addendum: 04/19/20 at [address] Amended: Links added.
[2020-04-19] MEDS: dexmedetomidine inj. 400 MCG in dextrose 5%-water 96 ML IV SCH ×2 (12:27→21:18)
[2020-04-19 12:49] LABS: MAGNESIUM 2.3 MG/DL (1.5-2.4)
--- NOTE | 2020-04-19 16:08 | NUR ---
Dr. Porter rounded. He said that he will wait until tomorrow to decrease PEEP again. He would like to see SpO2 maintained in "mid-nineties" range before he will consider it.
--- NOTE | 2020-04-19 18:10 | NUR ---
Problems reprioritized. Patient report given, questions answered & plan of care reviewed with DIONNE Christina.
[2020-04-19] MEDS: normal saline 1000ml 1,000 ML IV SCH ×2 (18:58→19:34)
[2020-04-19] MEDS: insulin glargine (Lantus) pen - multi-dose SQ SCH (20:27)
--- NOTE | 2020-04-19 22:50 | NUR ---
Patients mother called, updated her on current condition.
[2020-04-20] VITALS (24 sets, daily range): BP systolic 112–166; BP diastolic 63–92
[2020-04-20] MEDS: acetaminophen 325mg tablet PO PRN ×2 (00:23→10:12)
[2020-04-20] MEDS: FENTANYL-0.9 % NACL/PF 100 ML IV PRN ×7 (01:45→22:08)
[2020-04-20] MEDS: methylPREDNISolone sod succ 125mg/2ml vial IV SCH ×4 (02:07→20:25)
[2020-04-20] MEDS: mineral oil/petrolatum ophthal oint EACHEYE SCH ×4 (02:15→20:25)
[2020-04-20] MEDS: insulin regular, human U-100 3ml vial - multi-dose SQ SCH ×4 (02:17→21:36)
[2020-04-20 02:47] LABS: BASOPHILS % (AUTO) 0.1 % (0-1); EOSINOPHILS % (AUTO) 0 % (0-6); HEMATOCRIT 30.6 % (35.0-45.0); HEMOGLOBIN 10.4 g/dl (12.0-16.0); LYMPHOCYTES # (AUTO) 0.3 X10'3 (1.1-4.8); LYMPHOCYTES % (AUTO) 1.2 % (21-51); MEAN CORPUSCULAR HEMOGLOBIN 34.4 PG (27.0-31.0); MEAN CORPUSCULAR HGB CONC 34.1 g/dL (33.0-36.5); MEAN CORPUSCULAR VOLUME 100.6 FL (78-98); MEAN PLATELET VOLUME 7.1 FL (7.4-10.4); MONOCYTES # (AUTO) 0.8 X10'3 (0-0.9); MONOCYTES % (AUTO) 3.3 % (2-12); NEUTROPHILS # (AUTO) 21.6 X10'3 (1.8-7.7); NEUTROPHILS % (AUTO) 95.4 % (42-75); PLATELET COUNT 243 X10'3 (140-440); RED BLOOD COUNT 3.04 X10'6 (4.20-5.60); RED CELL DISTRIBUTION WIDTH 12.8 % (11.5-14.5); WHITE BLOOD COUNT 22.7 X10'3 (4.5-11.0)
[2020-04-20] MEDS: ipratropium/albuterol 3ml nebule NEB SCH ×6 (02:56→23:44)
[2020-04-20 02:58] LABS: ALANINE AMINOTRANSFERASE 25 U/L (12-78); ALBUMIN 2.3 G/DL (3.4-5.0); ALBUMIN/GLOBULIN RATIO 0.7 (1.1-1.5); ALKALINE PHOSPHATASE 59 IU/L (46-116); ANION GAP 8 (8-16); ASPARTATE AMINO TRANSFERASE 25 U/L (10-37); BILIRUBIN,TOTAL 0.3 MG/DL (0.1-1.0); BLOOD UREA NITROGEN 23 MG/DL (7-18); BUN/CREATININE RATIO 29.1 (6.6-38.0); CALCIUM 8.2 MG/DL (8.5-10.1); CHLORIDE 111 MMOL/L (99-107); CREATININE 0.79 MG/DL (0.40-0.90); GLUCOSE 137 MG/DL (70-104); MAGNESIUM 2.2 MG/DL (1.5-2.4); PHOSPHORUS 2.4 MG/DL (2.3-4.5); POTASSIUM 4.1 MMOL/L (3.5-5.1); SODIUM 146 MMOL/L (135-145); TOTAL CARBON DIOXIDE 27.3 MMOL/L (24-32); TOTAL PROTEIN 5.8 G/DL (6.4-8.2); eGFR 79 ML/MIN
[2020-04-20 03:21] LABS: ABG BASE EXCESS 0.4 mmol/L (-2.0-3.0); ABG OXYGEN SATURATION 96.7 % (95-98); ABG PCO2 (T) 40.2 mmHg (35.0-45.0); ABG PH (T) 7.411 (7.350-7.450); ABG PO2 (T) 95.3 mmHg (83-108); FCOHb 0.2 % (0.5-1.5); FMetHb 0.1 % (0.3-1.12); FO2Hb 96.4 % (94-100); PATIENT TEMPERATURE 36.8; PEEP 12 cm H2O; RESPIRATORY RATE 24 b/min; TIDAL VOLUME 350 mL; TOTAL HEMOGLOBIN 11.6 G/dl (12.0-16.0)
[2020-04-20] MEDS: midazolam 100mg in NS 100ml 100 ML IV PRN ×4 (03:36→23:47)
[2020-04-20] MEDS ORDERED: lactulose 20gm/30ml cup PO PRN (04:30)
--- NOTE | 2020-04-20 04:45 | NUR ---
Called Nicko Bernabe NP regarding patients BP of 162/91 on arterial line and 143/92 on BP arm cuff. provider stated she will address and put in orders. Awaiting orders. Will continue to monitor.
[2020-04-20] MEDS: lisinopril 5mg tablet NG SCH ×2 (05:03→05:07)
--- NOTE | 2020-04-20 06:28 | NUR ---
Problems reprioritized. Patient report given, questions answered & plan of care reviewed with Nikole TRUONG.
[2020-04-20] MEDS: heparin, porcine 5000 units/ml vial SQ SCH ×2 (07:18→20:25)
[2020-04-20] MEDS: furosemide 40mg/4ml inj IV SCH ×2 (07:19→20:25)
[2020-04-20] MEDS: levoFLOXACIN-Levaquin 500mg/D5 100 ML IV SCH (07:22)
[2020-04-20] MEDS: pantoprazole 40 MG vial IV SCH (07:22)
[2020-04-20] MEDS: docusate sodium 100mg/10ml UD cup PO SCH ×2 (07:22→20:24)
[2020-04-20] MEDS: lactobacillus rhamnosus 10,000 MMU CELLS/CAPSULE PO SCH ×2 (07:22→20:25)
[2020-04-20] MEDS: K, MAG and/or Phos replacement - Verify level? MC SCH (07:23)
[2020-04-20] MEDS: dexmedetomidine inj. 400 MCG in dextrose 5%-water 96 ML IV SCH (07:49)
[2020-04-20] MEDS: CISatracurium besylate inj. 100 MG in normal saline 100ml IV soln 90 ML IV PRN (08:08)
--- NOTE | 2020-04-20 11:31 | NUR ---
F/u: COLBY d/w RN regarding opioid antagonist if grand scribe agreeable given no BM yet this admit on opioids to ensure optimal EN tolerance on rotoprone. Pt is receiving routine colace. TF Consult: OGTF to start today per grand scribe. Pt on rotoprone bed w/ ARDS, peritonsillar abscess aspiration, and meth abuse hx. MAP 73 this AM. No BM yet this admit. Will monitor for EN tolerance. Recommend: 1. OGTF per MD using vital AF at 70 ml/hr, would provide 1680 ml, 2016 cals, 126 g protein, and 1362 ml water. 2. additional water flush 200ml Q4 3. daily weights; prealbumin q saturday/ 4. routine bowel care; consider opioid antagonist on opiates for optimal EN tolerance on rotoprone w/ OG feeds 5. monitor for TF tolerance Addendum: 04/20/20 at [address] Amended: Links added.
--- NOTE | 2020-04-20 11:53 | NUR ---
Administered Tylenol 650 mg over an hour ago. Temp 38.6, initiating cooling blanket now. Will cont. to monitor.
--- NOTE | 2020-04-20 18:30 | NUR ---
Patient in room CICU 2010. I have received report from Nikole TRUONG, and had the opportunity to ask questions and assume patient care.
[2020-04-20] MEDS: insulin glargine (Lantus) pen - multi-dose SQ SCH (21:35)
[2020-04-21] VITALS (24 sets, daily range): BP systolic 86–191; BP diastolic 51–99
[2020-04-21] MEDS: FENTANYL-0.9 % NACL/PF 100 ML IV PRN ×7 (00:54→22:17)
[2020-04-21] MEDS: ipratropium/albuterol 3ml nebule NEB SCH ×6 (02:07→23:08)
[2020-04-21 02:16] LABS: ABG BASE EXCESS 4.4 mmol/L (-2.0-3.0); ABG HCO3 29.2 mmol/L (22.0-26.0); ABG PCO2 (T) 45.8 mmHg (35.0-45.0); ABG PH (T) 7.426 (7.350-7.450); FCOHb 0.3 % (0.5-1.5); FMetHb 0.1 % (0.3-1.12); FO2Hb 95.6 % (94-100); PATIENT TEMPERATURE 37.7; PEEP 8 cm H2O; RESPIRATORY RATE 24 b/min; TIDAL VOLUME 350 mL; TOTAL HEMOGLOBIN 11.3 G/dl (12.0-16.0)
[2020-04-21 02:40] LABS: BASOPHILS % (AUTO) 0.1 % (0-1); EOSINOPHILS % (AUTO) 0 % (0-6); HEMOGLOBIN 10.5 g/dl (12.0-16.0); LYMPHOCYTES # (AUTO) 0.5 X10'3 (1.1-4.8); LYMPHOCYTES % (AUTO) 2.2 % (21-51); MEAN CORPUSCULAR HEMOGLOBIN 34.3 PG (27.0-31.0); MEAN PLATELET VOLUME 7.1 FL (7.4-10.4); NEUTROPHILS # (AUTO) 22.1 X10'3 (1.8-7.7); NEUTROPHILS % (AUTO) 93.7 % (42-75); PLATELET COUNT 256 X10'3 (140-440); RED BLOOD COUNT 3.07 X10'6 (4.20-5.60); RED CELL DISTRIBUTION WIDTH 12.6 % (11.5-14.5); WHITE BLOOD COUNT 23.6 X10'3 (4.5-11.0)
[2020-04-21 02:49] LABS: ALANINE AMINOTRANSFERASE 26 U/L (12-78); ALBUMIN 2.3 G/DL (3.4-5.0); ALBUMIN/GLOBULIN RATIO 0.7 (1.1-1.5); ALKALINE PHOSPHATASE 55 IU/L (46-116); ANION GAP 3 (8-16); ASPARTATE AMINO TRANSFERASE 22 U/L (10-37); BILIRUBIN,TOTAL 0.2 MG/DL (0.1-1.0); BLOOD UREA NITROGEN 27 MG/DL (7-18); CALCIUM 8.3 MG/DL (8.5-10.1); CHLORIDE 110 MMOL/L (99-107); CREATININE 0.71 MG/DL (0.40-0.90); GLUCOSE 134 MG/DL (70-104); MAGNESIUM 1.9 MG/DL (1.5-2.4); PHOSPHORUS 2.2 MG/DL (2.3-4.5); PREALBUMIN 28.4 MG/DL (19-36); SODIUM 144 MMOL/L (135-145); TOTAL PROTEIN 5.5 G/DL (6.4-8.2); eGFR 89 ML/MIN
[2020-04-21] MEDS: insulin regular, human U-100 3ml vial - multi-dose SQ SCH ×4 (02:57→20:12)
[2020-04-21] MEDS: methylPREDNISolone sod succ 125mg/2ml vial IV SCH ×2 (02:59→08:05)
[2020-04-21] MEDS: mineral oil/petrolatum ophthal oint EACHEYE SCH ×4 (02:59→20:10)
[2020-04-21] MEDS: midazolam 100mg in NS 100ml 100 ML IV PRN ×3 (05:10→23:44)
--- NOTE | 2020-04-21 06:30 | NUR ---
Patient in room CICU 2010. I have received report from Kalli Godinez/Romy Santos RN and had the opportunity to ask questions and assume patient care along with Delilah Duran RN
--- NOTE | 2020-04-21 06:50 | NUR ---
Problems reprioritized. Patient report given, questions answered & plan of care reviewed with Lexx TRUONG.
[2020-04-21] MEDS: K, MAG and/or Phos replacement - Verify level? MC SCH (08:00)
[2020-04-21] MEDS: levoFLOXACIN-Levaquin 500mg/D5 100 ML IV SCH (08:01)
[2020-04-21] MEDS: docusate sodium 100mg/10ml UD cup PO SCH ×2 (08:05→20:09)
[2020-04-21] MEDS: pantoprazole 40 MG vial IV SCH (08:05)
[2020-04-21] MEDS: furosemide 40mg/4ml inj IV SCH ×2 (08:05→20:08)
[2020-04-21] MEDS: lactobacillus rhamnosus 10,000 MMU CELLS/CAPSULE PO SCH ×2 (08:05→20:09)
[2020-04-21] MEDS: lisinopril 5mg tablet NG SCH (08:06)
[2020-04-21] MEDS: heparin, porcine 5000 units/ml vial SQ SCH ×2 (08:06→20:06)
[2020-04-21] MEDS: methylPREDNISolone sod succ/PF 40mg inj. IV SCH ×2 (13:15→20:07)
[2020-04-21] MEDS: acetaminophen 325mg tablet PO PRN (13:16)
[2020-04-21] MEDS: dexmedetomidine inj. 400 MCG in dextrose 5%-water 96 ML IV SCH ×2 (13:44→22:39)
--- NOTE | 2020-04-21 18:15 | NUR ---
Problems reprioritized. Patient report given, questions answered & plan of care reviewed with RN.
--- NOTE | 2020-04-21 18:22 | NUR ---
Orientee documentation: I have reviewed and agree with all interventions, assessments performed and documented by Delilah Duran RN.
--- NOTE | 2020-04-21 18:52 | NUR ---
Problems reprioritized. Patient report given, questions answered & plan of care reviewed with Kalli Godinez/Romy Santos RN.
[2020-04-21] MEDS: insulin glargine (Lantus) pen - multi-dose SQ SCH (20:14)
--- NOTE | 2020-04-21 21:49 | NUR ---
MATT Pacheco called, there was no answer. Message left and awaiting a call back. PT is waking up wild/agitated and is hypertensive with SPB 180's-200's per A-Line, currently BP is 194/102 via A-Line and 156/93 via cuff. Sedation has been increase thus far in the shift in attempts to make PT more comfortable at to see if there is any effect of BP. Will continue to monitor.
--- NOTE | 2020-04-21 22:37 | NUR ---
Received call back from MATT Pacheco and received order for PRN Hydralazine. Will continue to monitor.
[2020-04-21] MEDS ORDERED: hydrALAZINE 20mg/ml inj. IV PRN (22:40)
[2020-04-22] VITALS (24 sets, daily range): BP systolic 16–184; BP diastolic 39–101
[2020-04-22] MEDS: FENTANYL-0.9 % NACL/PF 100 ML IV PRN ×3 (00:59→10:02)
[2020-04-22] MEDS: insulin regular, human U-100 3ml vial - multi-dose SQ SCH ×2 (01:57→09:26)
[2020-04-22] MEDS: mineral oil/petrolatum ophthal oint EACHEYE SCH ×3 (02:20→14:26)
[2020-04-22] MEDS: dexmedetomidine inj. 400 MCG in dextrose 5%-water 96 ML IV SCH ×4 (02:20→16:50)
[2020-04-22] MEDS: methylPREDNISolone sod succ/PF 40mg inj. IV SCH ×4 (02:22→20:01)
[2020-04-22 03:27] LABS: BASOPHILS % (AUTO) 0 % (0-1); EOSINOPHILS % (AUTO) 0 % (0-6); HEMATOCRIT 34.6 % (35.0-45.0); HEMOGLOBIN 11.8 g/dl (12.0-16.0); LYMPHOCYTES # (AUTO) 0.8 X10'3 (1.1-4.8); LYMPHOCYTES % (AUTO) 3.8 % (21-51); MEAN CORPUSCULAR HGB CONC 34.2 g/dL (33.0-36.5); MEAN CORPUSCULAR VOLUME 99.5 FL (78-98); MEAN PLATELET VOLUME 7.1 FL (7.4-10.4); MONOCYTES # (AUTO) 1.5 X10'3 (0-0.9); MONOCYTES % (AUTO) 7.3 % (2-12); NEUTROPHILS # (AUTO) 18.3 X10'3 (1.8-7.7); NEUTROPHILS % (AUTO) 88.9 % (42-75); PLATELET COUNT 279 X10'3 (140-440); RED BLOOD COUNT 3.48 X10'6 (4.20-5.60); RED CELL DISTRIBUTION WIDTH 12.6 % (11.5-14.5); WHITE BLOOD COUNT 20.6 X10'3 (4.5-11.0)
[2020-04-22 03:30] LABS: ABG BASE EXCESS 7.6 mmol/L (-2.0-3.0); ABG HCO3 29.8 mmol/L (22.0-26.0); ABG OXYGEN SATURATION 91.4 % (95-98); ABG PCO2 (T) 34.6 mmHg (35.0-45.0); ABG PH (T) 7.556 (7.350-7.450); ABG PO2 (T) 62.3 mmHg (83-108); FCOHb 0.3 % (0.5-1.5); FMetHb 0.2 % (0.3-1.12); FO2Hb 90.9 % (94-100); PATIENT TEMPERATURE 37.6; PEEP 8 cm H2O; RESPIRATORY RATE 24 b/min; TIDAL VOLUME 350 mL; TOTAL HEMOGLOBIN 12.5 G/dl (12.0-16.0)
[2020-04-22] MEDS: ipratropium/albuterol 3ml nebule NEB SCH ×6 (03:36→20:01)
[2020-04-22 03:38] LABS: ALANINE AMINOTRANSFERASE 38 U/L (12-78); ALBUMIN 2.4 G/DL (3.4-5.0); ALBUMIN/GLOBULIN RATIO 0.7 (1.1-1.5); ALKALINE PHOSPHATASE 59 IU/L (46-116); ANION GAP 5 (8-16); ASPARTATE AMINO TRANSFERASE 41 U/L (10-37); BILIRUBIN,TOTAL 0.3 MG/DL (0.1-1.0); BLOOD UREA NITROGEN 27 MG/DL (7-18); BUN/CREATININE RATIO 44.3 (6.6-38.0); CALCIUM 8.2 MG/DL (8.5-10.1); CHLORIDE 105 MMOL/L (99-107); CREATININE 0.61 MG/DL (0.40-0.90); GLUCOSE 126 MG/DL (70-104); MAGNESIUM 1.9 MG/DL (1.5-2.4); PHOSPHORUS 2.3 MG/DL (2.3-4.5); POTASSIUM 3.2 MMOL/L (3.5-5.1); SODIUM 141 MMOL/L (135-145); TOTAL CARBON DIOXIDE 30.6 MMOL/L (24-32); TOTAL PROTEIN 5.7 G/DL (6.4-8.2); eGFR > 90 ML/MIN
[2020-04-22] MEDS ORDERED: dextrose ORAL solution 15 GM/59 ML bottle PEG PRN (05:24)
[2020-04-22] MEDS: POTASSIUM BICARB 20meq eff tab 20 MEQ TABLET.EFF PEG PRN ×3 (05:37→14:28)
[2020-04-22] MEDS: levoFLOXACIN-Levaquin 500mg/D5 100 ML IV SCH (08:52)
[2020-04-22] MEDS: heparin, porcine 5000 units/ml vial SQ SCH ×2 (08:53→20:01)
[2020-04-22] MEDS: pantoprazole 40 MG vial IV SCH (08:53)
[2020-04-22] MEDS: docusate sodium 100mg/10ml UD cup PO SCH ×2 (08:53→20:00)
[2020-04-22] MEDS: furosemide 40mg/4ml inj IV SCH ×2 (08:54→20:01)
[2020-04-22] MEDS: lisinopril 5mg tablet NG SCH (08:54)
[2020-04-22] MEDS: lactobacillus rhamnosus 10,000 MMU CELLS/CAPSULE PO SCH ×2 (08:54→20:01)
[2020-04-22] MEDS: K, MAG and/or Phos replacement - Verify level? MC SCH (08:56)
[2020-04-22] MEDS: normal saline 1000ml 1,000 ML IV SCH (10:01)
[2020-04-22] MEDS: midazolam 100mg in NS 100ml 100 ML IV PRN (10:02)
[2020-04-22] MEDS ORDERED: racepinephrine 11.25mg/0.5ml nebule NEB PRN (14:50)
[2020-04-22] MEDS ORDERED: ipratropium/albuterol 3ml nebule NEB PRN (14:50)
--- NOTE | 2020-04-22 16:30 | NUR ---
Orders to extubate received, RT present, PT extubated at 1545. PT tolerated well. PT alert, oriented and talking. On 4 liters 02 via NC.Denies pain.
--- NOTE | 2020-04-22 17:52 | NUR ---
Follow up 04/22: patient extubated today. NPO. No longer with OG for tube feedings. Will monitor for diet advancement and PO intake. Rec: 1. advance diet as medically indicated to heart healthy 2. monitor need for ONS when diet advanced 3. routine bowel care 4. wt per rx Addendum: 04/22/20 at [address] Amended: Links added.
--- NOTE | 2020-04-22 18:15 | NUR ---
Problems reprioritized. Patient report given, questions answered & plan of care reviewed with RN.
--- NOTE | 2020-04-22 18:24 | NUR ---
Problems reprioritized. Patient report given, questions answered & plan of care reviewed with Scout TRUONG.
[2020-04-22] MEDS: insulin glargine (Lantus) pen - multi-dose SQ SCH (20:02)
[2020-04-23] VITALS (17 sets, daily range): BP systolic 108–161; BP diastolic 66–95
[2020-04-23] MEDS: methylPREDNISolone sod succ/PF 40mg inj. IV SCH ×2 (01:52→07:33)
[2020-04-23] MEDS: ipratropium/albuterol 3ml nebule NEB SCH ×4 (02:20→20:24)
--- NOTE | 2020-04-23 06:33 | NUR ---
Patient in room CICU 2010. I have received report from Scout and had the opportunity to ask questions and assume patient care.
[2020-04-23] MEDS: K, MAG and/or Phos replacement - Verify level? MC SCH (06:34)
[2020-04-23 06:57] LABS: ALANINE AMINOTRANSFERASE 100 U/L (12-78); ALBUMIN 2.8 G/DL (3.4-5.0); ALBUMIN/GLOBULIN RATIO 0.7 (1.1-1.5); ALKALINE PHOSPHATASE 78 IU/L (46-116); ANION GAP 11 (8-16); BILIRUBIN,TOTAL 0.7 MG/DL (0.1-1.0); BLOOD UREA NITROGEN 24 MG/DL (7-18); BUN/CREATININE RATIO 39.3 (6.6-38.0); CALCIUM 9.2 MG/DL (8.5-10.1); CHLORIDE 97 MMOL/L (99-107); CREATININE 0.61 MG/DL (0.40-0.90); GLUCOSE 109 MG/DL (70-104); MAGNESIUM 2.2 MG/DL (1.5-2.4); SODIUM 134 MMOL/L (135-145); TOTAL CARBON DIOXIDE 26.2 MMOL/L (24-32); TOTAL PROTEIN 6.8 G/DL (6.4-8.2); eGFR > 90 ML/MIN
[2020-04-23 07:11] LABS: ASPARTATE AMINO TRANSFERASE 96 U/L (10-37)
[2020-04-23 07:12] LABS: PHOSPHORUS 3.7 MG/DL (2.3-4.5)
[2020-04-23] MEDS: heparin, porcine 5000 units/ml vial SQ SCH ×3 (07:33→19:48)
[2020-04-23] MEDS: pantoprazole 40 MG vial IV SCH ×2 (07:33→07:51)
[2020-04-23] MEDS: furosemide 40mg/4ml inj IV SCH ×2 (07:33→19:46)
[2020-04-23] MEDS: docusate sodium 100mg/10ml UD cup PO SCH ×3 (07:34→19:47)
[2020-04-23] MEDS: lactobacillus rhamnosus 10,000 MMU CELLS/CAPSULE PO SCH ×2 (07:34→19:46)
[2020-04-23] MEDS: levoFLOXACIN-Levaquin 500mg/D5 100 ML IV SCH (07:34)
[2020-04-23] MEDS: lisinopril 5mg tablet NG SCH (07:34)
[2020-04-23 08:07] LABS: BASOPHILS % (AUTO) 0.1 % (0-1); EOSINOPHILS % (AUTO) 0 % (0-6); HEMATOCRIT 42.8 % (35.0-45.0); HEMOGLOBIN 14.8 g/dl (12.0-16.0); LYMPHOCYTES # (AUTO) 1.2 X10'3 (1.1-4.8); LYMPHOCYTES % (AUTO) 4.4 % (21-51); MEAN CORPUSCULAR HEMOGLOBIN 34.2 PG (27.0-31.0); MEAN CORPUSCULAR HGB CONC 34.5 g/dL (33.0-36.5); MEAN PLATELET VOLUME 6.9 FL (7.4-10.4); MONOCYTES # (AUTO) 1.3 X10'3 (0-0.9); MONOCYTES % (AUTO) 4.8 % (2-12); NEUTROPHILS # (AUTO) 25.2 X10'3 (1.8-7.7); NEUTROPHILS % (AUTO) 90.7 % (42-75); PLATELET COUNT 332 X10'3 (140-440); RED BLOOD COUNT 4.32 X10'6 (4.20-5.60); RED CELL DISTRIBUTION WIDTH 12.8 % (11.5-14.5)
[2020-04-23 08:12] LABS: WHITE BLOOD COUNT 27.8 X10'3 (4.5-11.0)
[2020-04-23 08:39] LABS: TOTAL CELLS COUNTED 100
[2020-04-23 08:42] LABS: PLATELET ESTIMATE NORMAL; POLYCHROMASIA 1+; STOMATOCYTES 1+; TOXIC GRANULATION 1+; TOXIC VACUOLATION FEW
[2020-04-23] MEDS ORDERED: LORazepam 2 mg/ml vial IV PRN (09:10)
[2020-04-23] MEDS ORDERED: dextrose 50%-water 50ml dispensing syringe IV PRN (09:10)
[2020-04-23] MEDS ORDERED: thiamine 100mg/ml 2ml inj. IV ONE (09:10)
[2020-04-23] MEDS ORDERED: haloperidol lactate 5mg/ml inj IM PRN (09:10)
[2020-04-23] MEDS ORDERED: haloperidol 5mg tablet PO PRN (09:10)
[2020-04-23] MEDS ORDERED: LORazepam 1 MG tablet PO PRN (09:10)
[2020-04-23] MEDS ORDERED: thiamine inj. 100 MG in normal saline 100ml IV soln 99 ML IV ONE (09:15)
[2020-04-23 10:10] LABS: CLARITY,URINE CLEAR (Clear); COLOR,URINE YELLOW (Yellow); GLUCOSE, URINE NEGATIVE (Neg); KETONES,URINE NEGATIVE (Neg); LEUKOCYTE ESTERASE ,URINE NEGATIVE (Neg); NITRITES, URINE NEGATIVE (Neg); OCCULT BLOOD,URINE TRACE-INTACT (Neg); PROTEIN,URINE NEGATIVE (Neg); UROBILINOGEN,URINE 0.2 E.U/dL (0.2-1.0)
[2020-04-23 10:15] LABS: UA COLLECTION TYPE FOLEY CATH
[2020-04-23 10:16] LABS: BACTERIA,URINE NONE SEEN /HPF (Neg); MUCUS STRANDS NONE SEEN /LPF (Neg); RBC,URINE 0-2 /HPF (0-2); SQUAMOUS EPITHELIAL CELL,UR NONE SEEN /LPF (FEW); WBC,URINE NONE SEEN /HPF (0-4)
--- NOTE | 2020-04-23 11:00 | NUR ---
F/u: Patient's diet has been advanced to regular however currently being documented as NPO. ST has been consulted for BSS. Will continue to follow closely and monitor need for nutrition intervention. Addendum: 04/23/20 at [address] Amended: Links added.
--- NOTE | 2020-04-23 13:34 | NUR ---
Pt transferred to U room 3019 with all personal belongings.
--- NOTE | 2020-04-23 18:23 | NUR ---
Problems reprioritized. Patient report given, questions answered & plan of care reviewed with
--- NOTE | 2020-04-23 20:22 | NUR ---
Pt states that her breathing feels fine and that she does not want scheduled breathing tx. I educated pt to call the RN if she felt SOB. Pt asked that she not be woken for 0300 breathing tx
[2020-04-23] MEDS: insulin glargine (Lantus) pen - multi-dose SQ SCH (20:50)
[2020-04-24 03:00] VITALS: BP 102/63
[2020-04-24] MEDS: ipratropium/albuterol 3ml nebule NEB SCH ×4 (03:00→19:30)
[2020-04-24] MEDS: dexmedetomidine inj. 400 MCG in dextrose 5%-water 96 ML IV SCH (03:28)
[2020-04-24] MEDS: normal saline 1000ml 1,000 ML IV SCH (05:52)
--- NOTE | 2020-04-24 06:29 | NUR ---
Patient in room PCU 3019. I have received report from South TRUONG and had the opportunity to ask questions and assume patient care. Patient awake and oriented at this time, l;ab drawing the morning labs, patient offers no complaints, asked for door closed at this time, will continue to monitor.
[2020-04-24 06:48] LABS: BASOPHILS % (AUTO) 0.2 % (0-1); EOSINOPHILS % (AUTO) 0.2 % (0-6); HEMATOCRIT 41.3 % (35.0-45.0); HEMOGLOBIN 14.3 g/dl (12.0-16.0); LYMPHOCYTES # (AUTO) 1.6 X10'3 (1.1-4.8); LYMPHOCYTES % (AUTO) 9.3 % (21-51); MEAN CORPUSCULAR HEMOGLOBIN 34.3 PG (27.0-31.0); MEAN CORPUSCULAR HGB CONC 34.7 g/dL (33.0-36.5); MEAN CORPUSCULAR VOLUME 98.8 FL (78-98); MEAN PLATELET VOLUME 7.1 FL (7.4-10.4); MONOCYTES # (AUTO) 0.8 X10'3 (0-0.9); MONOCYTES % (AUTO) 4.4 % (2-12); NEUTROPHILS # (AUTO) 15.2 X10'3 (1.8-7.7); NEUTROPHILS % (AUTO) 85.9 % (42-75); PLATELET COUNT 330 X10'3 (140-440); RED BLOOD COUNT 4.18 X10'6 (4.20-5.60); RED CELL DISTRIBUTION WIDTH 12.8 % (11.5-14.5); WHITE BLOOD COUNT 17.7 X10'3 (4.5-11.0)
[2020-04-24 07:00] VITALS: BP 121/79
[2020-04-24 07:03] LABS: ALANINE AMINOTRANSFERASE 160 U/L (12-78); ALBUMIN 2.7 G/DL (3.4-5.0); ALBUMIN/GLOBULIN RATIO 0.7 (1.1-1.5); ALKALINE PHOSPHATASE 80 IU/L (46-116); ANION GAP 7 (8-16); ASPARTATE AMINO TRANSFERASE 78 U/L (10-37); BILIRUBIN,TOTAL 0.7 MG/DL (0.1-1.0); BLOOD UREA NITROGEN 23 MG/DL (7-18); BUN/CREATININE RATIO 29.5 (6.6-38.0); CALCIUM 8.9 MG/DL (8.5-10.1); CHLORIDE 97 MMOL/L (99-107); CREATININE 0.78 MG/DL (0.40-0.90); GLUCOSE 105 MG/DL (70-104); MAGNESIUM 2.3 MG/DL (1.5-2.4); PHOSPHORUS 4.3 MG/DL (2.3-4.5); SODIUM 135 MMOL/L (135-145); TOTAL CARBON DIOXIDE 31.4 MMOL/L (24-32); TOTAL PROTEIN 6.4 G/DL (6.4-8.2); eGFR 80 ML/MIN
--- NOTE | 2020-04-24 07:33 | NUR ---
PAGER ID: [phone] MESSAGE: Jabari [id number]. Pt had critical K this am of 3.0, will replace per protocol. Thanks, Lindsay [phone]
--- NOTE | 2020-04-24 07:34 | NUR ---
Patient refused SVN tx @ this time. No Shortness of breath noted. Addendum: 04/24/20 at 0734 by Noy Lyon RT Amended: Links added.
[2020-04-24 07:48] LABS: PLATELET ESTIMATE NORMAL; POLYCHROMASIA 1+; TOTAL CELLS COUNTED 100; TOXIC GRANULATION 2+
[2020-04-24] MEDS: docusate sodium 100mg/10ml UD cup PO SCH ×2 (08:00→20:21)
[2020-04-24] MEDS: heparin, porcine 5000 units/ml vial SQ SCH ×2 (08:00→20:22)
[2020-04-24] MEDS: K, MAG and/or Phos replacement - Verify level? MC SCH (08:00)
[2020-04-24] MEDS: furosemide 40mg/4ml inj IV SCH (08:35)
[2020-04-24] MEDS: lactobacillus rhamnosus 10,000 MMU CELLS/CAPSULE PO SCH ×2 (08:35→20:21)
[2020-04-24] MEDS: pantoprazole 40 MG vial IV SCH (08:35)
[2020-04-24] MEDS: lisinopril 5mg tablet NG SCH (08:35)
[2020-04-24] MEDS: POTASSIUM BICARB 20meq eff tab 20 MEQ TABLET.EFF PO PRN ×3 (08:39→20:20)
[2020-04-24] MEDS: chlordiazePOXIDE 25mg capsule PO PRN (10:55)
[2020-04-24] MEDS: levoFLOXACIN 750MG TABLET PO SCH (10:55)
[2020-04-24] MEDS: folic acid 1mg tablet PO SCH (10:55)
[2020-04-24] MEDS: thiamine 100mg tablet PO SCH (10:55)
[2020-04-24 11:00] VITALS: BP 103/69
[2020-04-24 13:00] VITALS: BP 103/69
[2020-04-24 15:00] VITALS: BP 93/60
[2020-04-24 18:00] VITALS: BP 101/61
--- NOTE | 2020-04-24 18:10 | NUR ---
Patient in room U 3019. I have received report from MARY TRUONG and had the opportunity to ask questions and assume patient care. Addendum: 04/24/20 at 2145 by Mary Abad RN RHEA TRUONG
--- NOTE | 2020-04-24 18:26 | NUR ---
Problems reprioritized. Patient report given, questions answered & plan of care reviewed with Radha TRUONG. Patient awake and oriented stable at transfer of care.
--- NOTE | 2020-04-24 19:30 | NUR ---
Pt refusing all SVN tx.
[2020-04-24] MEDS ORDERED: furosemide 20MG tablet PO SCH (20:00)
[2020-04-24] MEDS: insulin glargine (Lantus) pen - multi-dose SQ SCH (21:00)
[2020-04-25] VITALS (7 sets, daily range): BP systolic 96–130; BP diastolic 41–88
[2020-04-25] MEDS: chlordiazePOXIDE 25mg capsule PO PRN ×2 (02:22→21:49)
[2020-04-25] MEDS: ipratropium/albuterol 3ml nebule NEB SCH ×3 (03:00→20:25)
--- NOTE | 2020-04-25 04:26 | NUR ---
PT WAS FEELING ANXIOUS AROUND 0400, HER VITALS WERE STABLE. ALREADY GAVE HER LIBRIUM ABOUT AN 1.5 HRS PRIOR AND IT HAD NOT HELPED WITH HER ANXIETY, SO I GAVE HER ATIVAN. WILL CONTINUE TO MONITOR.
--- NOTE | 2020-04-25 04:46 | NUR ---
PT COMPLAINING OF FEELING LIKE SHE IS GOING TO PASS OUT ALTHOUGH SHE IS LYING FLAT IN BED, I ASKED HER IF SHE WANTED TO EAT SOMETHING AND SHE AGREED ON A SANDWICH AND SOME SORBET.
--- NOTE | 2020-04-25 04:52 | NUR ---
PTS BLOOD SUGAR WAS CHECKED AROUND 0400 WELL AND IT WAS 117.
--- NOTE | 2020-04-25 06:20 | NUR ---
Patient in room PCU 3019. I have received report from DIONNE Paez and had the opportunity to ask questions and assume patient care.
[2020-04-25 06:39] LABS: ALANINE AMINOTRANSFERASE 126 U/L (12-78); ALBUMIN 2.5 G/DL (3.4-5.0); ALBUMIN/GLOBULIN RATIO 0.7 (1.1-1.5); ALKALINE PHOSPHATASE 80 IU/L (46-116); ANION GAP 8 (8-16); ASPARTATE AMINO TRANSFERASE 43 U/L (10-37); BILIRUBIN,TOTAL 0.6 MG/DL (0.1-1.0); BLOOD UREA NITROGEN 17 MG/DL (7-18); CALCIUM 8.6 MG/DL (8.5-10.1); CHLORIDE 99 MMOL/L (99-107); CREATININE 0.74 MG/DL (0.40-0.90); GLUCOSE 139 MG/DL (70-104); MAGNESIUM 2.1 MG/DL (1.5-2.4); PHOSPHORUS 3.7 MG/DL (2.3-4.5); POTASSIUM 3.2 MMOL/L (3.5-5.1); SODIUM 134 MMOL/L (135-145); TOTAL CARBON DIOXIDE 27.2 MMOL/L (24-32); TOTAL PROTEIN 6.2 G/DL (6.4-8.2); eGFR 85 ML/MIN
[2020-04-25 06:44] LABS: BASOPHILS % (AUTO) 0.1 % (0-1); EOSINOPHILS # (AUTO) 0.1 X10'3 (0-0.9); EOSINOPHILS % (AUTO) 0.3 % (0-6); HEMATOCRIT 41.6 % (35.0-45.0); HEMOGLOBIN 14.2 g/dl (12.0-16.0); LYMPHOCYTES # (AUTO) 1.8 X10'3 (1.1-4.8); LYMPHOCYTES % (AUTO) 10.5 % (21-51); MEAN CORPUSCULAR HEMOGLOBIN 33.4 PG (27.0-31.0); MEAN CORPUSCULAR HGB CONC 34.1 g/dL (33.0-36.5); MEAN CORPUSCULAR VOLUME 97.8 FL (78-98); MEAN PLATELET VOLUME 7.4 FL (7.4-10.4); MONOCYTES # (AUTO) 0.8 X10'3 (0-0.9); MONOCYTES % (AUTO) 4.8 % (2-12); NEUTROPHILS # (AUTO) 14.8 X10'3 (1.8-7.7); NEUTROPHILS % (AUTO) 84.3 % (42-75); PLATELET COUNT 360 X10'3 (140-440); RED BLOOD COUNT 4.26 X10'6 (4.20-5.60); RED CELL DISTRIBUTION WIDTH 12.5 % (11.5-14.5); WHITE BLOOD COUNT 17.6 X10'3 (4.5-11.0)
[2020-04-25] MEDS: POTASSIUM BICARB 20meq eff tab 20 MEQ TABLET.EFF PEG PRN ×3 (07:27→21:47)
[2020-04-25] MEDS: docusate sodium 100mg/10ml UD cup PO SCH ×2 (07:27→19:52)
[2020-04-25] MEDS: thiamine 100mg tablet PO SCH (07:28)
[2020-04-25] MEDS: folic acid 1mg tablet PO SCH (07:28)
[2020-04-25] MEDS: lactobacillus rhamnosus 10,000 MMU CELLS/CAPSULE PO SCH ×2 (07:28→19:42)
[2020-04-25] MEDS: lisinopril 5mg tablet NG SCH (07:29)
[2020-04-25] MEDS: pantoprazole 40mg Tablet.DR PO SCH (07:29)
[2020-04-25] MEDS: heparin, porcine 5000 units/ml vial SQ SCH ×2 (07:30→19:42)
--- NOTE | 2020-04-25 07:46 | NUR ---
Patient refused SVN tx @ this time. No Shortness of breath noted. PT HAS BEEN REFUSING FOR SEVERAL DAYS DOESNT APPEAR TO NEED BRONCHODILATOR. RA NAD Addendum: 04/25/20 at 0747 by Noy Lyon RT Amended: Links added.
[2020-04-25] MEDS ORDERED: furosemide 20MG tablet PO SCH (08:00)
[2020-04-25] MEDS: K, MAG and/or Phos replacement - Verify level? MC SCH (08:00)
[2020-04-25] MEDS: clindamycin 150mg capsule PO SCH ×2 (16:54→21:47)
[2020-04-25] MEDS: levoFLOXACIN 750MG TABLET PO SCH (16:54)
--- NOTE | 2020-04-25 18:18 | NUR ---
Patient in room PCU 3019. I have received report from DIONNE Tinajero and had the opportunity to ask questions and assume patient care.
--- NOTE | 2020-04-25 18:33 | NUR ---
Problems reprioritized. Patient report given, questions answered & plan of care reviewed with DIONNE Dubois.
[2020-04-25] MEDS: insulin glargine (Lantus) pen - multi-dose SQ SCH (21:00)
[2020-04-26] MEDS: clindamycin 150mg capsule PO SCH ×3 (02:20→14:00)
--- NOTE | 2020-04-26 06:30 | NUR ---
Patient in room PCU 3019. I have received report from DIONNE Dubois and had the opportunity to ask questions and assume patient care.
--- NOTE | 2020-04-26 06:38 | NUR ---
Problems reprioritized. Patient report given, questions answered & plan of care reviewed with DIONNE Tinajero.
[2020-04-26 07:20] LABS: BASOPHILS % (AUTO) 0.1 % (0-1); EOSINOPHILS # (AUTO) 0.1 X10'3 (0-0.9); EOSINOPHILS % (AUTO) 0.3 % (0-6); HEMATOCRIT 40.3 % (35.0-45.0); LYMPHOCYTES # (AUTO) 2.1 X10'3 (1.1-4.8); LYMPHOCYTES % (AUTO) 9.2 % (21-51); MEAN CORPUSCULAR HEMOGLOBIN 33.9 PG (27.0-31.0); MEAN CORPUSCULAR HGB CONC 34.8 g/dL (33.0-36.5); MEAN CORPUSCULAR VOLUME 97.5 FL (78-98); MEAN PLATELET VOLUME 7.6 FL (7.4-10.4); MONOCYTES # (AUTO) 1.3 X10'3 (0-0.9); MONOCYTES % (AUTO) 5.7 % (2-12); NEUTROPHILS # (AUTO) 18.8 X10'3 (1.8-7.7); NEUTROPHILS % (AUTO) 84.7 % (42-75); PLATELET COUNT 382 X10'3 (140-440); RED BLOOD COUNT 4.14 X10'6 (4.20-5.60); RED CELL DISTRIBUTION WIDTH 12.5 % (11.5-14.5); WHITE BLOOD COUNT 22.2 X10'3 (4.5-11.0)
[2020-04-26 07:25] LABS: ALANINE AMINOTRANSFERASE 111 U/L (12-78); ALBUMIN 2.6 G/DL (3.4-5.0); ALBUMIN/GLOBULIN RATIO 0.7 (1.1-1.5); ALKALINE PHOSPHATASE 84 IU/L (46-116); ANION GAP 8 (8-16); ASPARTATE AMINO TRANSFERASE 31 U/L (10-37); BILIRUBIN,TOTAL 0.5 MG/DL (0.1-1.0); BLOOD UREA NITROGEN 14 MG/DL (7-18); BUN/CREATININE RATIO 18.9 (6.6-38.0); CALCIUM 8.9 MG/DL (8.5-10.1); CHLORIDE 101 MMOL/L (99-107); CREATININE 0.74 MG/DL (0.40-0.90); GLUCOSE 104 MG/DL (70-104); POTASSIUM 3.8 MMOL/L (3.5-5.1); SODIUM 135 MMOL/L (135-145); TOTAL CARBON DIOXIDE 26.3 MMOL/L (24-32); TOTAL PROTEIN 6.3 G/DL (6.4-8.2); eGFR 85 ML/MIN
[2020-04-26] MEDS: pantoprazole 40mg Tablet.DR PO SCH (07:45)
[2020-04-26] MEDS: folic acid 1mg tablet PO SCH (07:46)
[2020-04-26] MEDS: thiamine 100mg tablet PO SCH (07:47)
[2020-04-26] MEDS: lisinopril 5mg tablet NG SCH (07:47)
[2020-04-26] MEDS: lactobacillus rhamnosus 10,000 MMU CELLS/CAPSULE PO SCH (07:47)
[2020-04-26] MEDS: heparin, porcine 5000 units/ml vial SQ SCH (07:48)
[2020-04-26] MEDS: docusate sodium 100mg/10ml UD cup PO SCH (07:48)
[2020-04-26] MEDS: K, MAG and/or Phos replacement - Verify level? MC SCH (08:00)
[2020-04-26] MEDS: ipratropium/albuterol 3ml nebule NEB SCH (08:12)
--- NOTE | 2020-04-26 08:13 | NUR ---
Pt refused svn tx. Has been refusing txs for some days now. No SOB noted. SpO2 97% on RA. BS clear Addendum: 04/26/20 at 0815 by Cely Diego RT Amended: Links added.
[2020-04-26 11:00] VITALS: BP 100/62
[2020-04-26] MEDS: levoFLOXACIN 750MG TABLET PO SCH (12:01)
--- NOTE | 2020-04-26 14:46 | NUR ---
Reassessment: Pt advanced to regular diet per PRODUCT LEAD recs and PO improving from 0-25% first 3 meals s/p extubation to mostly 100% now currently w/ 75-100% avg past 1.5 days. LBM 04/25. No nutrition concerns at this time. Will continue to monitor. Rec: 1. continue regular diet per PRODUCT LEAD/MD 2. routine bowel care 3. wt per rx Addendum: 04/26/20 at [address] Amended: Links added.
[2020-04-26] MEDS ORDERED: CLE150C PO (14:48)
[2020-04-26] MEDS ORDERED: LEVO750T46 PO (14:48)
[2020-04-26 15:00] VITALS: BP 123/82
--- NOTE | 2020-04-26 16:15 | NUR ---
Patient has been discharged. All discharge instructions given to patient both verbally and written. Prescriptions called to patient's pharmacy on record. PIV was removed by resource nurse as well as discharge instructions. Addendum: 04/26/20 at 1646 by Tanvi Coelho RN Patient did not have a PIV which was OK by Dr. Lazo.
== END 2020-04-26 15:26 | disposition home or self-care (01) | DRG 720 ==
LOC: ER 11:10 → ED HOLD 18:54 → CICU 2S 23:45 → PCU 3S 04-23 13:34
PROVIDERS: ATTEND Internal Medicine Critical Care Medicine
PROC: 5A1955Z Respiratory Ventilation, Greater than 96 Consecutive Hours (ICD-10-PCS; principal; 2020-04-17)
PROC: 0BH17EZ Insertion of Endotracheal Airway into Trachea, Via Natural or Artificial Opening (ICD-10-PCS; 2020-04-17)
PROC: 5A1935Z Respiratory Ventilation, Less than 24 Consecutive Hours (ICD-10-PCS; 2020-04-17)
PROC: BW2F1ZZ Computerized Tomography (CT Scan) of Neck using Low Osmolar Contrast (ICD-10-PCS; 2020-04-17)
PROC: 04HY32Z Insertion of Monitoring Device into Lower Artery, Percutaneous Approach (ICD-10-PCS; 2020-04-17)
PROC: 4A133B1 Monitoring of Arterial Pressure, Peripheral, Percutaneous Approach (ICD-10-PCS; 2020-04-17)
PROC: 4A133J1 Monitoring of Arterial Pulse, Peripheral, Percutaneous Approach (ICD-10-PCS; 2020-04-17)
PROC: 0C9P0ZZ Drainage of Tonsils, Open Approach (ICD-10-PCS; 2020-04-17)
PROC: 02HV33Z Insertion of Infusion Device into Superior Vena Cava, Percutaneous Approach (ICD-10-PCS; 2020-04-17)
PROC: 5A2204Z Restoration of Cardiac Rhythm, Single (ICD-10-PCS; 2020-04-17)
DX: A41.9 Sepsis, unspecified organism (principal); J96.01 Acute respiratory failure with hypoxia; J18.9 Pneumonia, unspecified organism; I11.0 Hypertensive heart disease with heart failure; I43 Cardiomyopathy in diseases classified elsewhere; I50.9 Heart failure, unspecified; E87.6 Hypokalemia; F10.239 Alcohol dependence with withdrawal, unspecified; F17.210 Nicotine dependence, cigarettes, uncomplicated; F19.10 Other psychoactive substance abuse, uncomplicated; Z20.828 Contact with and (suspected) exposure to other viral communicable diseases; F32.9 Major depressive disorder, single episode, unspecified; F41.9 Anxiety disorder, unspecified; I16.1 Hypertensive emergency; J36 Peritonsillar abscess; R65.20 Severe sepsis without septic shock; Z90.49 Acquired absence of other specified parts of digestive tract; Z88.8 Allergy status to other drugs, medicaments and biological substances; Z98.51 Tubal ligation status
CPT/HCPCS: 31500; 36415; 36556; 36600; 70491; 71045; 76937; 80053; 80202; 80305; 81001; 81025; 82803; 82810; 82948; 83036; 83605; 83735; 83880; 84100; 84132; 84134; 84145; 84484; 85018; 85025; 85610; 85730; 87040; 87070; 87081; 87635; 92508; 92616; 93005; 93306; 94002; 94003; 94640; 94660; 94760; 97116; 97161; 97530; 99291; 99292; C9113; G0378; J0131; J0295; J0360; J1100; J1644; J1815; J1885; J1940; J1956; J2060; J2543; J2704; J2920; J2930; J3010; J3370; J3411; J3475; J3480; J3490; J7030; J7050; J7060; Q9967

== ENCOUNTER 2020-05-06 18:56 | Emergency (ER) | payer MEDICAID ==
[~2020-05-06] VITALS: Ht 157.5 cm; Wt 68.6 kg
[~2020-05-06 18:56] MED LIST changes: -AMLO5TAB4 PO; -CIPR-260 PO; +CLE150C PO; -CLIN-97 PO; -CLIN300C17 PO; -IBUP-1985 PO; +IBUP-2417 PO; +LEVO750T46 PO; -PHEN-824 PO; -PRED10TA PO; -PRED20TA PO; -TRAM50TA2 PO; -etomidate 2mg/ml inj. ONE; -rocuronium 10mg/ml inj IV ONE
--- NOTE | 2020-05-06 21:11 | NUR ---
VASC CALLED BACK ON WAY IN AT 21:11
[2020-05-06 22:16] VITALS: BP 158/111
== END 2020-05-06 22:18 | disposition home or self-care (01) ==
LOC: ER 18:57
DX: M71.21 Synovial cyst of popliteal space [Baker], right knee (principal); M79.89 Other specified soft tissue disorders; M79.661 Pain in right lower leg; I10 Essential (primary) hypertension; F41.9 Anxiety disorder, unspecified; F32.9 Major depressive disorder, single episode, unspecified; F17.200 Nicotine dependence, unspecified, uncomplicated; F12.90 Cannabis use, unspecified, uncomplicated; F15.90 Other stimulant use, unspecified, uncomplicated; Z87.440 Personal history of urinary (tract) infections; Z86.14 Personal history of Methicillin resistant Staphylococcus aureus infection; Z90.89 Acquired absence of other organs; Z98.51 Tubal ligation status; Z72.89 Other problems related to lifestyle; Z88.8 Allergy status to other drugs, medicaments and biological substances; Z79.2 Long term (current) use of antibiotics
CPT/HCPCS: 99284; 99285

== ENCOUNTER 2021-05-03 14:27 | Emergency (ER) | payer MEDICAID ==
[~2021-05-03] VITALS: Ht 157.5 cm; Wt 61.6 kg
[2021-05-03 14:40] VITALS: BP 171/120
--- NOTE | 2021-05-03 15:27 | NUR ---
Pt being taken to CT.
== END 2021-05-03 16:38 | disposition home or self-care (01) ==
LOC: ER 14:28
DX: S00.83XA Contusion of other part of head, initial encounter (principal); I10 Essential (primary) hypertension; F41.9 Anxiety disorder, unspecified; F32.9 Major depressive disorder, single episode, unspecified; F12.90 Cannabis use, unspecified, uncomplicated; F15.90 Other stimulant use, unspecified, uncomplicated; Z87.440 Personal history of urinary (tract) infections; Z86.14 Personal history of Methicillin resistant Staphylococcus aureus infection; Z90.89 Acquired absence of other organs; Z98.51 Tubal ligation status; Z98.890 Other specified postprocedural states; Z72.89 Other problems related to lifestyle; Z88.8 Allergy status to other drugs, medicaments and biological substances; Z79.2 Long term (current) use of antibiotics; W06.XXXA Fall from bed, initial encounter; Y93.89 Activity, other specified; Y92.89 Other specified places as the place of occurrence of the external cause; Y99.8 Other external cause status
CPT/HCPCS: 70450; 70486; 99285

== ENCOUNTER 2021-07-04 01:00 | Inpatient (IN) | payer MEDICAID ==
[~2021-07-04] VITALS: Ht 160 cm; Wt 59.1 kg
[2021-07-04 02:11] LABS: ALANINE AMINOTRANSFERASE 148 U/L (12-78); ALBUMIN 4.3 G/DL (3.4-5.0); ALKALINE PHOSPHATASE 148 IU/L (46-116); ANION GAP 12 (8-16); ASPARTATE AMINO TRANSFERASE 139 U/L (10-37); BILIRUBIN,TOTAL 1.3 MG/DL (0.1-1.0); BLOOD UREA NITROGEN 8 MG/DL (7-18); BUN/CREATININE RATIO 11.9 (6.6-38.0); CALCIUM 10.7 MG/DL (8.5-10.1); CHLORIDE 97 MMOL/L (99-107); CREATININE 0.67 MG/DL (0.40-0.90); GLUCOSE 108 MG/DL (70-104); LIPASE 945 U/L (73-393); SODIUM 138 MMOL/L (135-145); TOTAL CARBON DIOXIDE 28.9 MMOL/L (24-32); TOTAL PROTEIN 8.5 G/DL (6.4-8.2); eGFR > 90 ML/MIN
[2021-07-04 02:16] LABS: POTASSIUM 2.6 MMOL/L (3.5-5.1)
[2021-07-04 02:18] LABS: MEAN PLATELET VOLUME 6.8 FL (7.4-10.4)
[2021-07-04 02:50] LABS: HEMATOCRIT 37.8 % (35.0-45.0); HEMOGLOBIN 13.5 g/dl (12.0-16.0); MEAN CORPUSCULAR HEMOGLOBIN 35.2 PG (27.0-31.0); MEAN CORPUSCULAR HGB CONC 35.8 g/dL (33.0-36.5); MEAN CORPUSCULAR VOLUME 98.2 FL (78-98); RED BLOOD COUNT 3.85 X10'6 (4.20-5.60); RED CELL DISTRIBUTION WIDTH 12.3 % (11.5-14.5); WHITE BLOOD COUNT 9.2 X10'3 (4.5-11.0)
[2021-07-04 02:51] LABS: LYMPHOCYTES % (AUTO) 11.4 % (21-51); NEUTROPHILS % (AUTO) 78.1 % (42-75); PLATELET COUNT 228 X10'3 (140-440)
[2021-07-04 02:52] LABS: BASOPHILS # (AUTO) 0.1 X10'3 (0-0.2); BASOPHILS % (AUTO) 0.9 % (0-1); EOSINOPHILS # (AUTO) 0.1 X10'3 (0-0.9); EOSINOPHILS % (AUTO) 0.7 % (0-6); LYMPHOCYTES # (AUTO) 1.3 X10'3 (1.1-4.8); MONOCYTES # (AUTO) 1.1 X10'3 (0-0.9); MONOCYTES % (AUTO) 8.9 % (2-12); NEUTROPHILS # (AUTO) 9.2 X10'3 (1.8-7.7)
[2021-07-04 03:11] LABS: URINE HCG NEGATIVE (NEG)
[2021-07-04 03:41] LABS: CLARITY,URINE SLIGHTLY CLOUDY (Clear); COLOR,URINE YELLOW (Yellow); GLUCOSE, URINE NEGATIVE (Neg); KETONES,URINE NEGATIVE (Neg); LEUKOCYTE ESTERASE ,URINE TRACE (Neg); NITRITES, URINE NEGATIVE (Neg); OCCULT BLOOD,URINE NEGATIVE (Neg); PH,URINE 6.5 (4.8-8.0); PROTEIN,URINE 30 mg/dl (Neg); UROBILINOGEN,URINE 0.2 E.U/dL (0.2-1.0)
[2021-07-04 03:51] LABS: UA COLLECTION TYPE CLN CATCH MIDSTREAM
[2021-07-04 03:52] LABS: BACTERIA,URINE NONE SEEN /HPF (Neg); RBC,URINE NONE SEEN /HPF (0-2); SQUAMOUS EPITHELIAL CELL,UR FEW /LPF (FEW); WBC,URINE 0-4 /HPF (0-4)
[2021-07-04 03:53] LABS: MUCUS STRANDS NONE SEEN /LPF (Neg)
[2021-07-04] MEDS ORDERED: normal saline 1000ML IV soln IVB ONE (04:20)
[2021-07-04] MEDS ORDERED: ondansetron/PF 4mg/2ml inj IV ONE (04:20)
[2021-07-04] MEDS ORDERED: pantoprazole 40 MG vial IV ONE (04:20)
[2021-07-04] MEDS: potassium Cl 10 mEq/100mL bag IV SCH ×2 (05:03→07:40)
[2021-07-04] MEDS ORDERED: NO HOME MEDS (05:16)
[2021-07-04] MEDS ORDERED: haloperidol 5mg tablet PO PRN ×2 (06:05)
[2021-07-04] MEDS ORDERED: haloperidol lactate 5mg/ml inj IM PRN ×2 (06:05)
[2021-07-04] MEDS ORDERED: LORazepam 2 mg/ml vial IV PRN (06:05)
[2021-07-04] MEDS ORDERED: acetaminophen 325mg tablet PO PRN ×2 (06:05)
[2021-07-04] MEDS ORDERED: potassium Cl 40MEQ/1/2NS 520ml 520 ML IV PRN ×2 (06:05)
[2021-07-04] MEDS ORDERED: magnesium hydroxide 30ml (MOM) UD suspension PO PRN (06:05)
[2021-07-04] MEDS ORDERED: HYDROmorphone inj. 0.5 MG/0.5 ML DISP.SYRIN IV PRN (06:05)
[2021-07-04] MEDS ORDERED: magnesium 2GM in 50ml NS 50 ML IV PRN (06:05)
[2021-07-04] MEDS ORDERED: thiamine inj. 100 MG in normal saline 100ml IV soln 100 ML IV ONE (06:05)
[2021-07-04] MEDS ORDERED: mag hydrox/Alum hydrox/simeth 30ml oral suspension PO PRN (06:05)
[2021-07-04] MEDS ORDERED: ondansetron/PF 4mg/2ml inj IV PRN (06:05)
[2021-07-04] MEDS ORDERED: magnesium 4gm in 100ml NS 100 ML IV PRN (06:05)
[2021-07-04 07:08] LABS: HEMOGLOBIN A1C 5.2 % (4.5-6.2)
[2021-07-04] MEDS ORDERED: potassium Cl 10 mEq/100mL bag IV SCH (07:35)
[2021-07-04] MEDS: nicotine 21mg patch - 24 hr TD SCH (07:40)
[2021-07-04] MEDS: folic acid 1mg/0.2ml inj IV SCH (07:40)
[2021-07-04] MEDS: multivitamins, therapeutics tablet PO SCH (07:41)
[2021-07-04] MEDS: enoxaparin 40mg/0.4ml syringe SUBCUT SCH (07:41)
[2021-07-04] MEDS: thiamine inj. 100 MG in normal saline 100ml IV soln 100 ML IV SCH (07:41)
[2021-07-04] MEDS: K and/or MAG REPLACEMENT MC SCH ×2 (08:00→20:00)
[2021-07-04] MEDS ORDERED: folic acid inj. 2 MG, thiamine inj. 100 MG, MVI, adult No.4 with vit. K 10 ML in dextro... IV SCH ×4 (08:00)
[2021-07-04] MEDS: dextrose 5%-1/2 normal saline 1,000 ML IV SCH ×3 (10:29→16:19)
[2021-07-04] MEDS: potassium Cl 20 mEq SR tablet PO PRN ×3 (11:28→22:28)
--- NOTE | 2021-07-04 13:03 | NUR ---
Patient moved to fast track room 1.
--- NOTE | 2021-07-04 14:06 | NUR ---
attempted to give report to MEdsunnyrroby RN but nurse in the room with a patient and will call ED RN back after 5 minutes.
--- NOTE | 2021-07-04 14:57 | NUR ---
Patient in room KRUNAL 354. I have received report from Bud TRUONG and had the opportunity to ask questions and assume patient care.
[2021-07-04 14:59] VITALS: BP 176/108
[2021-07-04] MEDS: LORazepam 2 mg/ml vial IV PRN ×2 (16:15→17:48)
--- NOTE | 2021-07-04 18:15 | NUR ---
Problems reprioritized. Patient report given, questions answered & plan of care reviewed with Donnie TRUONG.
--- NOTE | 2021-07-04 18:34 | NUR ---
Patient in room [facility] 354. I have received report from Francine TRUONG and had the opportunity to ask questions and assume patient care.
[2021-07-04 19:00] VITALS: BP 157/105
[2021-07-04 20:00] VITALS: BP 157/105
[2021-07-04] MEDS: LORazepam 1 MG tablet PO PRN (22:28)
[2021-07-04 23:45] VITALS: BP 173/110
[2021-07-04 23:58] VITALS: BP 173/110
[2021-07-05] MEDS: LORazepam 2 mg/ml vial IV PRN (04:50)
[2021-07-05 05:10] VITALS: BP 211/125
[2021-07-05 05:23] LABS: BASOPHILS # (AUTO) 0.1 X10'3 (0-0.2); BASOPHILS % (AUTO) 0.8 % (0-1); EOSINOPHILS # (AUTO) 0.2 X10'3 (0-0.9); HEMATOCRIT 38.2 % (35.0-45.0); HEMOGLOBIN 13.7 g/dl (12.0-16.0); LYMPHOCYTES # (AUTO) 1.3 X10'3 (1.1-4.8); LYMPHOCYTES % (AUTO) 14.9 % (21-51); MEAN CORPUSCULAR HEMOGLOBIN 34.4 PG (27.0-31.0); MEAN CORPUSCULAR HGB CONC 35.8 g/dL (33.0-36.5); MEAN CORPUSCULAR VOLUME 96.1 FL (78-98); MEAN PLATELET VOLUME 6.8 FL (7.4-10.4); MONOCYTES # (AUTO) 0.6 X10'3 (0-0.9); MONOCYTES % (AUTO) 6.9 % (2-12); NEUTROPHILS # (AUTO) 6.5 X10'3 (1.8-7.7); NEUTROPHILS % (AUTO) 75.4 % (42-75); PLATELET COUNT 175 X10'3 (140-440); RED BLOOD COUNT 3.98 X10'6 (4.20-5.60); RED CELL DISTRIBUTION WIDTH 12.8 % (11.5-14.5); WHITE BLOOD COUNT 8.6 X10'3 (4.5-11.0)
[2021-07-05] MEDS: hydrALAZINE 20mg/ml inj. IV PRN ×2 (06:01→20:38)
[2021-07-05 07:00] VITALS: BP 141/91
--- NOTE | 2021-07-05 07:05 | NUR ---
Patient in room K[facility] 354. I have received report from DIONNE Fileds and had the opportunity to ask questions and assume patient care.
--- NOTE | 2021-07-05 07:25 | NUR ---
Problems reprioritized. Patient report given, questions answered & plan of care reviewed with Yesica TRUONG.
[2021-07-05] MEDS: K and/or MAG REPLACEMENT MC SCH ×2 (08:00→20:00)
[2021-07-05] MEDS: nicotine 21mg patch - 24 hr TD SCH (08:00)
[2021-07-05 09:07] LABS: ALANINE AMINOTRANSFERASE 134 U/L (12-78); ALBUMIN/GLOBULIN RATIO 0.8 (1.1-1.5); ALKALINE PHOSPHATASE 100 IU/L (46-116); AMYLASE 73 U/L (25-115); ANION GAP 8 (8-16); ASPARTATE AMINO TRANSFERASE 159 U/L (10-37); BILIRUBIN,TOTAL 1.2 MG/DL (0.1-1.0); BLOOD UREA NITROGEN 7 MG/DL (7-18); BUN/CREATININE RATIO 11.9 (6.6-38.0); CALCIUM 7.6 MG/DL (8.5-10.1); CHLORIDE 104 MMOL/L (99-107); CHOL/HDL RATIO 4.7 (0.00-4.99); CHOLESTEROL 220 MG/DL (0-200); CREATININE 0.59 MG/DL (0.40-0.90); GLUCOSE 109 MG/DL (70-104); HDL CHOLESTEROL 47 MG/DL (35-60); LDL CHOLESTEROL 145 MG/DL (50-100); LIPASE 606 U/L (73-393); MAGNESIUM 1.1 MG/DL (1.5-2.4); SODIUM 143 MMOL/L (135-145); TOTAL CARBON DIOXIDE 31.3 MMOL/L (24-32); TOTAL PROTEIN 6.6 G/DL (6.4-8.2); TRIGLYCERIDES 89 MG/DL (20-135); eGFR > 90 ML/MIN
[2021-07-05 09:10] LABS: POTASSIUM 2.8 MMOL/L (3.5-5.1)
[2021-07-05] MEDS: folic acid 1mg/0.2ml inj IV SCH (09:55)
[2021-07-05] MEDS: thiamine inj. 100 MG in normal saline 100ml IV soln 100 ML IV SCH (09:55)
[2021-07-05] MEDS: dextrose 5%-1/2 normal saline 1,000 ML IV SCH (10:01)
[2021-07-05] MEDS: multivitamins, therapeutics tablet PO SCH (10:02)
[2021-07-05] MEDS: potassium Cl 20 mEq SR tablet PO PRN ×3 (10:02→21:19)
[2021-07-05] MEDS: enoxaparin 40mg/0.4ml syringe SUBCUT SCH (10:06)
--- NOTE | 2021-07-05 18:30 | NUR ---
Patient in room K[facility] 354. I have received report from KYLIE TRUONG and had the opportunity to ask questions and assume patient care.
[2021-07-05 20:00] VITALS: BP 170/88
[2021-07-05] MEDS: magnesium Cl slow-release 64mg tablet PO PRN (21:24)
[2021-07-05 22:00] VITALS: BP 158/84
[2021-07-05] MEDS: LORazepam 1 MG tablet PO PRN (23:14)
[2021-07-06] VITALS: BP 150/89
[2021-07-06] MEDS: dextrose 5%-1/2 normal saline 1,000 ML IV SCH ×3 (00:36→12:08)
[2021-07-06] MEDS ORDERED: LORazepam 2 mg/ml vial IV PRN (06:05)
[2021-07-06] MEDS ORDERED: LORazepam 1 MG tablet PO PRN (06:05)
[2021-07-06 07:00] VITALS: BP 146/97
[2021-07-06 07:47] LABS: BASOPHILS # (AUTO) 0.1 X10'3 (0-0.2); BASOPHILS % (AUTO) 0.8 % (0-1); EOSINOPHILS # (AUTO) 0.1 X10'3 (0-0.9); EOSINOPHILS % (AUTO) 1.3 % (0-6); HEMATOCRIT 37.8 % (35.0-45.0); HEMOGLOBIN 13.2 g/dl (12.0-16.0); LYMPHOCYTES # (AUTO) 1.2 X10'3 (1.1-4.8); LYMPHOCYTES % (AUTO) 13.1 % (21-51); MEAN CORPUSCULAR HEMOGLOBIN 33.9 PG (27.0-31.0); MEAN CORPUSCULAR HGB CONC 34.9 g/dL (33.0-36.5); MEAN PLATELET VOLUME 7.4 FL (7.4-10.4); MONOCYTES # (AUTO) 0.7 X10'3 (0-0.9); MONOCYTES % (AUTO) 7.9 % (2-12); NEUTROPHILS # (AUTO) 6.8 X10'3 (1.8-7.7); NEUTROPHILS % (AUTO) 76.9 % (42-75); PLATELET COUNT 167 X10'3 (140-440); RED CELL DISTRIBUTION WIDTH 12.7 % (11.5-14.5); WHITE BLOOD COUNT 8.9 X10'3 (4.5-11.0)
[2021-07-06 07:58] LABS: ALANINE AMINOTRANSFERASE 142 U/L (12-78); ALBUMIN/GLOBULIN RATIO 0.9 (1.1-1.5); ALKALINE PHOSPHATASE 112 IU/L (46-116); AMYLASE 64 U/L (25-115); ANION GAP 9 (8-16); ASPARTATE AMINO TRANSFERASE 139 U/L (10-37); BILIRUBIN,TOTAL 1.1 MG/DL (0.1-1.0); BLOOD UREA NITROGEN 3 MG/DL (7-18); CALCIUM 8.3 MG/DL (8.5-10.1); CHLORIDE 108 MMOL/L (99-107); GLUCOSE 116 MG/DL (70-104); LIPASE 534 U/L (73-393); MAGNESIUM 1.3 MG/DL (1.5-2.4); PHOSPHORUS 1.5 MG/DL (2.3-4.5); POTASSIUM 3.3 MMOL/L (3.5-5.1); SODIUM 142 MMOL/L (135-145); TOTAL PROTEIN 6.5 G/DL (6.4-8.2); eGFR > 90 ML/MIN
[2021-07-06] MEDS: magnesium Cl slow-release 64mg tablet PO PRN ×2 (08:44→20:16)
[2021-07-06] MEDS: potassium Cl 20 mEq SR tablet PO PRN ×3 (08:44→20:16)
[2021-07-06] MEDS: nicotine 21mg patch - 24 hr TD SCH (08:45)
[2021-07-06] MEDS: thiamine inj. 100 MG in normal saline 100ml IV soln 100 ML IV SCH (08:46)
[2021-07-06] MEDS: multivitamins, therapeutics tablet PO SCH (08:46)
[2021-07-06] MEDS: enoxaparin 40mg/0.4ml syringe SUBCUT SCH (08:47)
[2021-07-06] MEDS: folic acid 1mg/0.2ml inj IV SCH (08:47)
[2021-07-06] MEDS: K and/or MAG REPLACEMENT MC SCH ×2 (08:55→20:00)
[2021-07-06 11:00] VITALS: BP 175/102
--- NOTE | 2021-07-06 18:43 | NUR ---
Problems reprioritized. Patient report given, questions answered & plan of care reviewed with DIONNE Parrish.
[2021-07-06 20:00] VITALS: BP 153/98
[2021-07-06] MEDS: LORazepam 1 MG tablet PO PRN (22:16)
[2021-07-07] VITALS: BP 158/86
[2021-07-07] MEDS: dextrose 5%-1/2 normal saline 1,000 ML IV SCH (01:54)
--- NOTE | 2021-07-07 06:30 | NUR ---
Problems reprioritized. Patient report given, questions answered & plan of care reviewed with KELLY TRUONG.
--- NOTE | 2021-07-07 06:37 | NUR ---
Patient in room KRUNAL 360. I have received report from DIONNE Parrish and had the opportunity to ask questions and assume patient care.
[2021-07-07 06:49] LABS: BASOPHILS # (AUTO) 0.1 X10'3 (0-0.2); BASOPHILS % (AUTO) 0.8 % (0-1); EOSINOPHILS # (AUTO) 0.1 X10'3 (0-0.9); EOSINOPHILS % (AUTO) 1.4 % (0-6); HEMATOCRIT 39.1 % (35.0-45.0); HEMOGLOBIN 13.7 g/dl (12.0-16.0); LYMPHOCYTES % (AUTO) 13.1 % (21-51); MEAN CORPUSCULAR HEMOGLOBIN 34.5 PG (27.0-31.0); MEAN CORPUSCULAR VOLUME 98.6 FL (78-98); MEAN PLATELET VOLUME 7.1 FL (7.4-10.4); MONOCYTES # (AUTO) 0.6 X10'3 (0-0.9); MONOCYTES % (AUTO) 7.8 % (2-12); NEUTROPHILS % (AUTO) 76.9 % (42-75); PLATELET COUNT 187 X10'3 (140-440); RED BLOOD COUNT 3.97 X10'6 (4.20-5.60); RED CELL DISTRIBUTION WIDTH 12.4 % (11.5-14.5); WHITE BLOOD COUNT 7.9 X10'3 (4.5-11.0)
[2021-07-07 07:00] VITALS: BP 178/108
[2021-07-07 07:14] LABS: ALANINE AMINOTRANSFERASE 196 U/L (12-78); ALBUMIN 3.3 G/DL (3.4-5.0); ALBUMIN/GLOBULIN RATIO 0.8 (1.1-1.5); ALKALINE PHOSPHATASE 122 IU/L (46-116); AMYLASE 60 U/L (25-115); ANION GAP 10 (8-16); ASPARTATE AMINO TRANSFERASE 181 U/L (10-37); BLOOD UREA NITROGEN 2 MG/DL (7-18); BUN/CREATININE RATIO 3.6 (6.6-38.0); CALCIUM 8.6 MG/DL (8.5-10.1); CHLORIDE 108 MMOL/L (99-107); CREATININE 0.56 MG/DL (0.40-0.90); GLUCOSE 112 MG/DL (70-104); LIPASE 420 U/L (73-393); MAGNESIUM 1.5 MG/DL (1.5-2.4); PHOSPHORUS 1.7 MG/DL (2.3-4.5); POTASSIUM 3.6 MMOL/L (3.5-5.1); SODIUM 143 MMOL/L (135-145); TOTAL CARBON DIOXIDE 25.2 MMOL/L (24-32); TOTAL PROTEIN 7.2 G/DL (6.4-8.2); eGFR > 90 ML/MIN
[2021-07-07] MEDS: multivitamins, therapeutics tablet PO SCH (07:52)
[2021-07-07] MEDS: enoxaparin 40mg/0.4ml syringe SUBCUT SCH (07:53)
[2021-07-07] MEDS: thiamine inj. 100 MG in normal saline 100ml IV soln 100 ML IV SCH (07:53)
[2021-07-07 07:55] VITALS: BP_SYST 178
[2021-07-07] MEDS: hydrALAZINE 20mg/ml inj. IV PRN (07:55)
[2021-07-07] MEDS: folic acid 1mg/0.2ml inj IV SCH (07:55)
[2021-07-07] MEDS: nicotine 21mg patch - 24 hr TD SCH (07:56)
[2021-07-07] MEDS: K and/or MAG REPLACEMENT MC SCH (08:00)
--- NOTE | 2021-07-07 11:20 | NUR ---
Hospitalist declined to DC pt, per pt request. Hospitalist informed pt that she could sign herself out AMA and directed this RN to provide AMA form to pt. Pt signed AMA form, both IV's DC'd-cannula's intact. Pt stated her boyfriend was on his way to pick her up. Ride currently pending.
[2021-07-08] MEDS ORDERED: LORazepam 2 mg/ml vial IV PRN (06:05)
[2021-07-08] MEDS ORDERED: LORazepam 1 MG tablet PO PRN (06:05)
== END 2021-07-07 11:34 | disposition left against medical advice (07) | DRG 282 ==
LOC: ER 01:01 → ED HOLD 06:01 → SUR 3N 14:45
PROVIDERS: ADMIT Internal Medicine; ATTEND Family Medicine
DX: K85.90 Acute pancreatitis without necrosis or infection, unspecified (principal); E87.6 Hypokalemia; F12.90 Cannabis use, unspecified, uncomplicated; F32.9 Major depressive disorder, single episode, unspecified; Z53.29 Procedure and treatment not carried out because of patient's decision for other reasons; F41.9 Anxiety disorder, unspecified; F17.210 Nicotine dependence, cigarettes, uncomplicated; I10 Essential (primary) hypertension; F10.239 Alcohol dependence with withdrawal, unspecified; Z87.442 Personal history of urinary calculi; Z90.49 Acquired absence of other specified parts of digestive tract; Z88.8 Allergy status to other drugs, medicaments and biological substances; Z98.51 Tubal ligation status; Z79.899 Other long term (current) drug therapy; Z98.891 History of uterine scar from previous surgery
CPT/HCPCS: 36415; 76700; 80053; 80061; 81001; 81025; 82150; 82948; 83036; 83690; 83735; 84100; 85025; 85610; 87081; 87088; 96361; 96374; 96375; 99285; C9113; G0378; J0360; J1170; J1650; J2060; J2405; J3411; J3480; J3490; J7030